=== PATIENT | female | born 1935 | race Two or more races ===

== ENCOUNTER 2017-10-10 11:45 | Emergency (ER) | payer MEDICARE, BC ==
[2017-10-10] MEDS ORDERED: SODIUM CHLORIDE 0.9% 1,000 ML IV STA (12:13)
[2017-10-10] MEDS ORDERED: SODIUM CHLORIDE 0.9% 500 ML IV STA (12:13)
[2017-10-10] MEDS ORDERED: PANTOPRAZOLE 40 MG/10 ML VIAL IVP STA (12:13)
[2017-10-10] MEDS ORDERED: ONDANSETRON 4 MG/2 ML VIAL IVP STA (12:13)
--- NOTE | 2017-10-10 12:19 | ED ---
General Adult HPI - General Chief complaint: GI Bleed Source: patient, RN notes reviewed, old records reviewed Mode of arrival: ambulatory Limitations: no limitations - History of Present Illness Initial comments: This is an 82-year-old female to the ER today for evaluation. This patient thank for evaluation of possible blood in her stool. Patient has had dark stools. She is unsure if it is due to what she is eating Morgan's having bleeding. Patient denies pain no abdominal pain. Patient has had bleeding in her stool before but that was accompanied with pain. She does have history of colonoscopy, no blood thinners. No nausea or vomiting - Related Data Home Medications Medication Instructions Recorded Confirmed Atorvastatin [Lipitor] 20 mg PO HS 02/02/14 10/10/17 Cholecalciferol [Vitamin D3] 2,000 unit PO DAILY 02/02/14 10/10/17 Docusate Sodium [Stool Softener] 100 mg PO BID 02/02/14 10/10/17 Ferrous Sulfate [Feosol] 325 mg PO BID 02/02/14 10/10/17 Lisinopril [Zestril] 5 mg PO DAILY 02/02/14 10/10/17 Omeprazole 40 mg PO AC-BRKFST 02/02/14 10/10/17 metFORMIN HCL [Glucophage] 500 mg PO QAM 02/02/14 10/10/17 Calcium Carbonate [Calcium] 600 mg PO BID 07/21/15 10/10/17 sitaGLIPtin [Januvia] 50 mg PO DAILY 11/18/15 10/10/17 Magnesium Oxide [Mag-Ox] 250 mg PO BID 10/10/17 10/10/17 metFORMIN HCL [Glucophage] 1,000 mg PO HS 10/10/17 10/10/17 Allergies Allergy/AdvReac Type Severity Reaction Status Date / Time codeine AdvReac Nausea & Verified 10/10/17 12:18 Vomiting Review of Systems ROS Statement: Those systems with pertinent positive or pertinent negative responses have been documented in the HPI. ROS Other: All systems not noted in ROS Statement are negative. Past Medical History Past Medical History: Diabetes Mellitus, GERD/Reflux, GI Bleed, Hyperlipidemia, Hypertension, Osteoarthritis (OA), Pneumonia Additional Past Medical History / Comment(s): Bowel Obstruction, Scoliosis, ANEMIA,CONSTIPATION History of Any Multi-Drug Resistant Organisms: None Reported Past Surgical History: Appendectomy, Bowel Resection, Section, Cholecystectomy, Hysterectomy, Tonsillectomy Additional Past Surgical History / Comment(s): BOWEL RESECTION D/T OBSTRUCTION, EGD/COLONOSCOPY, ANA CATARACATS, Past Anesthesia/Blood Transfusion Reactions: Postoperative Nausea & Vomiting ( PONV) Past Psychological History: No Psychological Hx Reported Smoking Status: Never smoker Past Alcohol Use History: None Reported Past Drug Use History: None Reported - Past Family History Father Family Medical History: Diabetes Mellitus Mother Family Medical History: Diabetes Mellitus General Exam Limitations: no limitations General appearance: alert, in no apparent distress Head exam: Present: atraumatic, normocephalic, normal inspection Eye exam: Present: normal appearance, PERRL, EOMI. Absent: scleral icterus, conjunctival injection, periorbital swelling ENT exam: Present: normal exam, mucous membranes moist Neck exam: Present: normal inspection. Absent: tenderness, meningismus, lymphadenopathy Respiratory exam: Present: normal lung sounds bilaterally. Absent: respiratory distress, wheezes, rales, rhonchi, stridor Cardiovascular Exam: Present: regular rate, normal rhythm, normal heart sounds. Absent: systolic murmur, diastolic murmur, rubs, gallop, clicks GI/Abdominal exam: Present: soft, normal bowel sounds. Absent: distended, tenderness, guarding, rebound, rigid Extremities exam: Present: normal inspection, full ROM, normal capillary refill. Absent: tenderness, pedal edema, joint swelling, calf tenderness Back exam: Present: normal inspection Neurological exam: Present: alert, oriented X3, CN II-XII intact Psychiatric exam: Present: normal affect, normal mood Skin exam: Present: warm, dry, intact, normal color. Absent: rash Course Vital Signs 10/10/17 10/10/17 11:59 13:02 Temperature 98.4 F Pulse Rate 72 68 Respiratory 16 18 Rate Blood Pressure 144/65 118/56 O2 Sat by Pulse 100 100 Oximetry - Reevaluation(s) Reevaluation #1: 10/10/17 13:09 History of colonoscopy regarding bleeding, ulcer Reevaluation #2: 10/10/17 14:17 Patient's awake alert not feeling nauseous dizzy weak or lightheaded Medical Decision Making - Medical Decision Making 82 female the ER with dark stools, patient informed of hemoglobin being normal, patient states she is scheduled to see GI would like to keep that appointment, she does not want to stay in the hospital, patient states she feels fine has not had any blood or any bowel movements while here in the ER - Lab Data Result diagrams: 10/10/17 12:20 10/10/17 12:20 Lab Results 10/10/17 10/10/17 10/10/17 Range/Units 12:20 12:20 12:20 WBC 5.9 (3.8-10.6) k/uL RBC 4.24 (3.80-5.40) m/uL Hgb 12.6 (11.4-16.0) gm/dL Hct 39.6 (34.0-46.0) % MCV 93.3 (80.0-100.0) fL MCH 29.8 (25.0-35.0) pg MCHC 32.0 (31.0-37.0) g/dL RDW 14.1 (11.5-15.5) % Plt Count 224 (150-450) k/uL Neutrophils % 78 % Lymphocytes % 14 % Monocytes % 6 % Eosinophils % 1 % Basophils % 0 % Neutrophils # 4.6 (1.3-7.7) k/uL Lymphocytes # 0.8 L (1.0-4.8) k/uL Monocytes # 0.3 (0-1.0) k/uL Eosinophils # 0.0 (0-0.7) k/uL Basophils # 0.0 (0-0.2) k/uL PT (9.0-12.0) sec INR (<1.2) APTT (22.0-30.0) sec Sodium 137 (137-145) mmol/L Potassium 4.2 (3.5-5.1) mmol/L Chloride 101 (98-107) mmol/L Carbon Dioxide 26 (22-30) mmol/L Anion Gap 10 mmol/L BUN 20 H (7-17) mg/dL Creatinine 0.60 (0.52-1.04) mg/dL Est GFR (MDRD) Af Amer >60 (>60 ml/min/1.73 sqM) Est GFR (MDRD) Non-Af >60 (>60 ml/min/1.73 sqM) Glucose 191 H (74-99) mg/dL Calcium 10.1 (8.4-10.2) mg/dL Magnesium 1.6 (1.6-2.3) mg/dL Total Bilirubin 0.4 (0.2-1.3) mg/dL AST 21 (14-36) U/L ALT 42 (9-52) U/L Alkaline Phosphatase 151 H (38-126) U/L Total Creatine Kinase 92 (30-135) U/L CK-MB (CK-2) 2.2 (0.0-2.4) ng/mL CK-MB (CK-2) Rel Index 2.4 Troponin I <0.012 (0.000-0.034) ng/mL Total Protein 6.9 (6.3-8.2) g/dL Albumin 4.1 (3.5-5.0) g/dL Lipase 167 (23-300) U/L Blood Type Blood Type Recheck Antibody Screen Spec Expiration Date 10/10/17 10/10/17 Range/Units 12:20 12:20 WBC (3.8-10.6) k/uL RBC (3.80-5.40) m/uL Hgb (11.4-16.0) gm/dL Hct (34.0-46.0) % MCV (80.0-100.0) fL MCH (25.0-35.0) pg MCHC (31.0-37.0) g/dL RDW (11.5-15.5) % Plt Count (150-450) k/uL Neutrophils % % Lymphocytes % % Monocytes % % Eosinophils % % Basophils % % Neutrophils # (1.3-7.7) k/uL Lymphocytes # (1.0-4.8) k/uL Monocytes # (0-1.0) k/uL Eosinophils # (0-0.7) k/uL Basophils # (0-0.2) k/uL PT 9.4 (9.0-12.0) sec INR 0.9 (<1.2) APTT 24.9 (22.0-30.0) sec Sodium (137-145) mmol/L Potassium (3.5-5.1) mmol/L Chloride (98-107) mmol/L Carbon Dioxide (22-30) mmol/L Anion Gap mmol/L BUN (7-17) mg/dL Creatinine (0.52-1.04) mg/dL Est GFR (MDRD) Af Amer (>60 ml/min/1.73 sqM) Est GFR (MDRD) Non-Af (>60 ml/min/1.73 sqM) Glucose (74-99) mg/dL Calcium (8.4-10.2) mg/dL Magnesium (1.6-2.3) mg/dL Total Bilirubin (0.2-1.3) mg/dL AST (14-36) U/L ALT (9-52) U/L Alkaline Phosphatase (38-126) U/L Total Creatine Kinase (30-135) U/L CK-MB (CK-2) (0.0-2.4) ng/mL CK-MB (CK-2) Rel Index Troponin I (0.000-0.034) ng/mL Total Protein (6.3-8.2) g/dL Albumin (3.5-5.0) g/dL Lipase (23-300) U/L Blood Type O Positive Blood Type Recheck No Antibody Screen NEGATIVE Spec Expiration Date 10/13/2017 - 1420 - Radiology Data Radiology results: report reviewed (X-ray barium swallow), image reviewed Disposition Clinical Impression: Gastrointestinal hemorrhage Disposition: HOME SELF-CARE Condition: Good Instructions: Gastrointestinal Bleeding (ED) Referrals: Jaison Barros MD [Primary Care Provider] - 1-2 days
[2017-10-10 12:42] LABS: Basophils % (A) 0 %; Eosinophils % (A) 1 %; HCT 39.6 % (34.0-46.0); HGB 12.6 gm/dL (11.4-16.0); Lymphocytes # (A) 0.8 k/uL (1.0-4.8); Lymphocytes % (A) 14 %; MCH 29.8 pg (25.0-35.0); MCV 93.3 fL (80.0-100.0); Mean Platelet Volume 7.9; Monocytes # (A) 0.3 k/uL (0-1.0); Monocytes % (A) 6 %; Neutrophils # (A) 4.6 k/uL (1.3-7.7); Neutrophils % (A) 78 %; Platelet Count 224 k/uL (150-450); RBC 4.24 m/uL (3.80-5.40); RDW 14.1 % (11.5-15.5); WBC 5.9 k/uL (3.8-10.6)
[2017-10-10 12:48] LABS: INR 0.9 (<1.2); Partial Thromboplastin Time 24.9 sec (22.0-30.0); Prothrombin Time 9.4 sec (9.0-12.0)
[2017-10-10 12:52] LABS: ALT 42 U/L (9-52); AST 21 U/L (14-36); Albumin 4.1 g/dL (3.5-5.0); Alkaline Phosphatase 151 U/L (38-126); Anion Gap 10 mmol/L; Blood Urea Nitrogen 20 mg/dL (7-17); Calcium 10.1 mg/dL (8.4-10.2); Carbon Dioxide 26 mmol/L (22-30); Chloride 101 mmol/L (98-107); Glucose 191 mg/dL (74-99); Lipase 167 U/L (23-300); Magnesium 1.6 mg/dL (1.6-2.3); Potassium 4.2 mmol/L (3.5-5.1); Sodium 137 mmol/L (137-145); Total Bilirubin 0.4 mg/dL (0.2-1.3); Total Protein 6.9 g/dL (6.3-8.2)
[2017-10-10 13:01] LABS: Creatine Kinase 92 U/L (30-135)
[2017-10-10 13:14] LABS: Creatine Kinase MB 2.2 ng/mL (0.0-2.4); Troponin I <0.012 ng/mL (0.000-0.034)
[2017-10-10 13:57] VITALS: BP 118/56; PULSE 68
[2017-10-10 14:52] VITALS: RESP 16; TEMP 98.6
== END 2017-10-10 14:52 | disposition home or self-care (01) ==
LOC: EC 11:45
DX: K92.2 Gastrointestinal hemorrhage, unspecified (principal); E11.9 Type 2 diabetes mellitus without complications; K21.9 Gastro-esophageal reflux disease without esophagitis; E78.5 Hyperlipidemia, unspecified; I10 Essential (primary) hypertension; Z90.49 Acquired absence of other specified parts of digestive tract; Z90.710 Acquired absence of both cervix and uterus; Z98.890 Other specified postprocedural states; Z79.84 Long term (current) use of oral hypoglycemic drugs; Z79.899 Other long term (current) drug therapy; Z88.5 Allergy status to narcotic agent
CPT/HCPCS: 36415; 86900; 86901; 80053; 82550; 82553; 83690; 83735; 84484; 85025; 85610; 85730; 86850; 99285; 96374; 96375; 96361 ×2; J2405; C9113

== ENCOUNTER → 2017-11-13 | Outpatient (CLI) | payer MEDICARE, BC ==
--- NOTE | 2017-11-13 11:55 | FL ---
EXAMINATION TYPE: FL barium swallow w video DATE OF EXAM: 11/13/2017 MODIFIED SWALLOW / DEGLUTITION STUDY CLINICAL HISTORY: Dysphagia. TECHNIQUE: Deglutition study is performed utilizing thin liquid barium, honey and nectar thick liqui d barium, barium thick applesauce, and barium coated cracker. 1 minute and 6 seconds of fluoroscopy t jeane was utilized with 0 images saved. COMPARISON: None. FINDINGS: The oral and pharyngeal phases show satisfactory initiation and propagation with all modali ties tested. Normal mastication is seen with solid modalities tested. There is no evidence of aspir ation with any modality tested. Trace penetration was seen with the thin consistency only. No signif icant pharyngeal residue was appreciated. IMPRESSION: Trace penetration with the thin consistency only otherwise unremarkable exam. Please ref er to speech therapist notes for further details if necessary.
== END | disposition home or self-care (01) ==
LOC: RADFLMAIN 11:15
DX: R13.12 Dysphagia, oropharyngeal phase (principal)
CPT/HCPCS: 74230

== ENCOUNTER → 2018-02-27 | Outpatient (CLI) | payer MEDICARE, BC ==
--- NOTE | 2018-02-28 11:24 | US ---
EXAMINATION TYPE: US venous doppler duplex LE RT DATE OF EXAM: 02/27/2018 2:57 PM COMPARISON: NONE CLINICAL HISTORY: M79.661 pain in right lower limb. SIDE PERFORMED: Right TECHNIQUE: The lower extremity deep venous system is examined utilizing real time linear array sonog aston with graded compression, doppler sonography and color-flow sonography. VESSELS IMAGED: External Iliac Vein (EIV) Common Femoral Vein Deep Femoral Vein Greater Saphenous Vein * Femoral Vein Popliteal Vein Small Saphenous Vein * Proximal Calf Veins (* superficial vessels) Right Leg: Negative for DVT IMPRESSION: Right lower extremity venous ultrasound negative for deep venous thrombosis.
== END | disposition home or self-care (01) ==
LOC: RADUSWWP 14:24
PROVIDERS: ATTEND Family Medicine
DX: M79.661 Pain in right lower leg (principal)

== ENCOUNTER → 2020-09-13 | Outpatient (CLI) | payer MEDICARE, BC ==
--- NOTE | 2020-09-13 13:50 | US ---
EXAMINATION TYPE: US venous doppler duplex LE DATE OF EXAM: 09/13/2020 1:34 PM COMPARISON: NONE CLINICAL HISTORY: R22.41,R22.42 SWELLING OF LT AND RT LIMBS. SIDE PERFORMED: Bilateral TECHNIQUE: The lower extremity deep venous system is examined utilizing real time linear array sonog aston with graded compression, doppler sonography and color-flow sonography. VESSELS IMAGED: Common Femoral Vein Deep Femoral Vein Greater Saphenous Vein * Femoral Vein Popliteal Vein Small Saphenous Vein * Proximal Calf Veins (* superficial vessels) Right Leg: Negative for DVT Left Leg: Negative for DVT IMPRESSION: No evidence for DVT.
== END | disposition home or self-care (01) ==
LOC: RADUSWWP 12:56
PROVIDERS: ATTEND Family Medicine
DX: R22.43 Localized swelling, mass and lump, lower limb, bilateral (principal); Z88.2 Allergy status to sulfonamides; Z88.5 Allergy status to narcotic agent
CPT/HCPCS: 93970

== ENCOUNTER 2022-10-04 17:30 | Emergency (ER) | payer MEDICARE, BC ==
[2022-10-04 19:39] VITALS: RESP 18; TEMP 98
[2022-10-04] MEDS ORDERED: MECLIZINE 12.5 MG TAB PO STA (19:40)
[2022-10-04 19:42] LABS: Basophils % (A) 0 %; Eosinophils # (A) 0.1 k/uL (0-0.7); Eosinophils % (A) 1 %; HCT 33.9 % (34.0-46.0); HGB 10.9 gm/dL (11.4-16.0); Lymphocytes # (A) 0.5 k/uL (1.0-4.8); Lymphocytes % (A) 8 %; MCHC 32.1 g/dL (31.0-37.0); MCV 96.5 fL (80.0-100.0); Mean Platelet Volume 7.6; Monocytes # (A) 0.3 k/uL (0-1.0); Monocytes % (A) 4 %; Neutrophils # (A) 6.1 k/uL (1.3-7.7); Neutrophils % (A) 85 %; Platelet Count 324 k/uL (150-450); RBC 3.51 m/uL (3.80-5.40); RDW 13.5 % (11.5-15.5); WBC 7.1 k/uL (3.8-10.6)
[2022-10-04 20:05] LABS: Albumin 3.7 g/dL (3.5-5.0); Calcium 8.9 mg/dL (8.4-10.2); Potassium 3.9 mmol/L (3.5-5.1); Total Bilirubin 0.4 mg/dL (0.2-1.3); Total Protein 6.6 g/dL (6.3-8.2)
--- NOTE | 2022-10-04 20:56 | CT ---
EXAMINATION TYPE: CT angio head neck CT DLP: 1472.7 mGycm, Automated exposure control for dose reduction was used. DATE OF EXAM: 10/04/2022 8:43 PM COMPARISON: None. CLINICAL INDICATION:Female, 86 years old with history of acute vertigo; PHH, DIZZINESS. ACUTE VERTIGO . TECHNIQUE: Axially acquired helical CT angiogram of the head and neck was obtained with contrast. Axi al images are supplemented with 3D reconstructions which [facility] NASCET criteria used. Contrast used:65 mL of Isovue 370 without and with IV Contrast, Oral contrast used: None. FINDINGS: CTA HEAD: No evidence of acute intracranial hemorrhage, mass effect, or midline shift. The ventricles, sulci, a nd cisterns are unremarkable. The visualized portions of the internal carotid arteries, middle cerebral arteries, anterior cerebral arteries, and posterior cerebral arteries are patent. origin of the left posterior cerebral ar sumanth. Hypoplastic right posterior communicating artery. The basilar and vertebral arteries are patent . Bilaterally aphakia. Scattered white matter changes within the cerebrum. Atherosclerosis of the art erial vasculature CTA NECK: Right Carotid System: The common carotid artery and external carotid artery are patent. The carotid bifurcation demonstrate s calcified plaque with at least 25% stenosis. The remaining portions of the internal carotid artery demonstrate normal size without significant narrowing. Left Carotid System: The common carotid artery and external carotid artery are patent. The carotid bifurcation demonstrate s calcified plaque with at least 25% stenosis. The remaining portions of the internal carotid artery demonstrate normal size without significant narrowing. Vertebral arteries are patent without evidence hemodynamically significant stenosis. There is a domin ant right vertebral artery. For vessel aortic arch. Calcified plaque with at least 25% stenosis of the left subclavian artery at its origin. No evidence of hemodynamically significant stenosis. IMPRESSION: 1. No evidence of dissection of the cervical internal carotid arteries or vertebral arteries or any e vidence of significant stenosis at the carotid bifurcations. 2. No evidence of intracranial high-grade stenosis or intracranial aneurysm. 3. Mild calcified plaque at the origins of the internal carotid arteries and left subclavian artery w ith 25% stenosis. 4. Nonspecific white matter changes.
[2022-10-04] MEDS ORDERED: INSULIN REGULAR 100 UNIT/ML VIAL (IV) SQ STA (21:22)
[2022-10-04] MEDS ORDERED: SODIUM CHLORIDE 0.9% 1,000 ML IV ONE (21:22)
[2022-10-04 21:49] LABS: Glucose,Whole Blood 131 mg/dL (70-110)
[2022-10-04 21:54] LABS: Glucose,Whole Blood 329 mg/dL (70-110)
[2022-10-04] MEDS ORDERED: INSULIN REGULAR 100 UNIT/ML VIAL (IM/SQ) SQ ONE (21:54)
--- NOTE | 2022-10-04 22:25 | ED ---
Dizziness HPI - General Chief Complaint: Dizziness Stated Complaint: dizziness, weakness Time Seen by Provider: 10/04/22 19:23 Source: patient Mode of arrival: wheelchair - History of Present Illness Initial Comments: This patient is an 87-year-old woman who states that she has not been feeling right going back to 3 days. She is feeling off balance and lightheaded like she will fall. Things are definitely worse if she attempts to get up and walk. She feels much better if she is remaining still sitting down. She is not having injury prior to onset. She has not noted chest pain, dyspnea, diaphoresis. No fever or chills. Patient denies change in bowel movements, no bloody or tarry stools. MD Complaint: dizziness, lightheadedness -: days(s) Timing: gradual onset Description: lightheadedness, off-balance, difficulty walking History of Same: Yes History of Trauma: No Severity: moderate Improves With: remaining still Worsens With: other (Walking) Associated Symptoms: weakness - Related Data Home Medications Medication Instructions Recorded Confirmed Atorvastatin [Lipitor] 20 mg PO HS 02/02/14 10/04/22 Ferrous Sulfate [Feosol] 325 mg PO BID 02/02/14 10/04/22 Omeprazole 40 mg PO DAILY 02/02/14 10/04/22 lisinopriL [Zestril] 5 mg PO DAILY 02/02/14 10/04/22 Magnesium Oxide [Mag-Ox] 250 mg PO DAILY 10/10/17 10/04/22 Carboxymethylcellulose Sodium 1 drop BOTH EYES TID PRN 10/04/22 10/04/22 [Refresh Tears] Cholecalciferol [Vitamin D3 (25 50 mcg PO DAILY 10/04/22 10/04/22 Mcg = 1000 Iu)] Furosemide [Lasix] 40 mg PO DAILY 10/04/22 10/04/22 Glimepiride [Amaryl] 4 mg PO DAILY 10/04/22 10/04/22 Insulin Degludec [Tresiba 5 - 6 units SQ HS 10/04/22 10/04/22 Flextouch U-100 Pen] Pioglitazone [Actos] 15 mg PO DAILY 10/04/22 10/04/22 metFORMIN HCL ER [Glucophage XR] 500 mg PO DAILY 10/04/22 10/04/22 sitaGLIPtin [Januvia] 100 mg PO DAILY 10/04/22 10/04/22 Allergies Allergy/AdvReac Type Severity Reaction Status Date / Time codeine AdvReac Nausea & Verified 10/04/22 18:11 Vomiting Review of Systems ROS Statement: Those systems with pertinent positive or pertinent negative responses have been documented in the HPI. ROS Other: All systems not noted in ROS Statement are negative. Constitutional: Reports: weakness. Denies: fever, chills Eyes: Denies: vision change Respiratory: Denies: cough, dyspnea Cardiovascular: Denies: chest pain, palpitations Gastrointestinal: Denies: abdominal pain, vomiting, diarrhea, melena, hematochezia Genitourinary: Denies: dysuria, hematuria Skin: Denies: rash Neurological: Denies: headache, weakness, numbness, confusion Past Medical History Past Medical History: Diabetes Mellitus, GERD/Reflux, GI Bleed, Hyperlipidemia, Hypertension, Osteoarthritis (OA), Pneumonia Additional Past Medical History / Comment(s): Bowel Obstruction, Scoliosis, ANEMIA,CONSTIPATION History of Any Multi-Drug Resistant Organisms: None Reported Past Surgical History: Appendectomy, Bowel Resection, Section, Cholecystectomy, Hysterectomy, Tonsillectomy Additional Past Surgical History / Comment(s): BOWEL RESECTION D/T OBSTRUCTION, EGD/COLONOSCOPY, ANA CATARACATS, Past Anesthesia/Blood Transfusion Reactions: Postoperative Nausea & Vomiting ( PONV) Past Psychological History: No Psychological Hx Reported Past Alcohol Use History: None Reported Past Drug Use History: None Reported - Past Family History Father Family Medical History: Diabetes Mellitus Mother Family Medical History: Diabetes Mellitus General Exam General appearance: alert, in no apparent distress Head exam: Present: atraumatic, normocephalic Eye exam: Present: normal appearance, PERRL, EOMI, scleral icterus, conjunctival injection ENT exam: Present: mucous membranes dry Neck exam: Present: normal inspection, full ROM. Absent: tenderness, meningismus Respiratory exam: Present: normal lung sounds bilaterally. Absent: respiratory distress, wheezes, rales, rhonchi, stridor Cardiovascular Exam: Present: regular rate, normal rhythm, normal heart sounds. Absent: systolic murmur, diastolic murmur, rubs, gallop GI/Abdominal exam: Present: soft. Absent: distended, tenderness, guarding, rebo und, rigid, mass Extremities exam: Present: normal inspection, normal capillary refill. Absent: pedal edema, calf tenderness Back exam: Present: normal inspection. Absent: CVA tenderness (R), CVA tenderness (L) Neurological exam: Present: alert, oriented X3, CN II-XII intact. Absent: motor sensory deficit Skin exam: Present: warm, dry, intact, normal color. Absent: rash Course Vital Signs 10/04/22 10/04/22 10/04/22 18:06 19:37 21:08 Temperature 98.2 F 98.0 F Pulse Rate 93 81 84 Respiratory 16 18 Rate Blood Pressure 106/60 121/59 110/54 O2 Sat by Pulse 98 98 100 Oximetry 10/04/22 23:03 Temperature Pulse Rate 81 Respiratory 18 Rate Blood Pressure 109/51 O2 Sat by Pulse 92 L Oximetry EKG Findings - EKG Results: EKG: interpreted by EVELYN LADD, sinus rhythm (Rate 88 bpm), normal axis, normal QRS, normal ST/T, no acute changes - MN, Pacemaker, Normal: Normal tracing: normal tracing Medical Decision Making - Medical Decision Making This patient is an 87-year-old woman presenting with altered balance unsteady feeling. It is particularly worse if she is up and moving, better if she is just remaining still and sitting. On exam she does appear to have dry mucous membranes. Lab studies reveal patient has moderate hyperglycemia. The patient does feel better following fluid bolus. She is feeling better like she would like to go home. We discussed maintaining the diabetic diet. He does not want stay for further education and treatment. Patient will return if symptoms worsen. Was pt. sent in by a medical professional or institution? @ -no Did you speak to anyone other than the patient for history? @ -[Daughter Did you review nursing and triage notes? @ -[agree Were old charts reviewed? @ -[No Differential Diagnosis? @ -[Differential Dizziness: Benign paroxysmal positional Vertigo, Menieres disease, otitis media, acoustic neuroma, vertebrobasilar insufficiency, cerebellar stroke, encephalitis, hypovolemic, arrhythmia, coronary artery syndrome, anemia, this is not meant to be an all-inclusive list EKG interpreted by me (3pts min.)? @ -[See chart X-rays interpreted by me (1pt min.)? @ -[none] CT interpreted by me (1pt min.)? @ -[none] U/S interpreted by me (1pt. min.)? @ -[none] What testing was considered but not performed? (CT, X-rays, U/S, labs)? Why? @ [No What meds were considered but not given? Why? @ -[none] Did you discuss the management of the patient with other professionals? @ -No Did you reconcile home meds? @ -[none] Was smoking cessation discussed for >3mins.? @ -[none] Was critical care preformed (if so, how long)? @ -[none] Were there social determinants of health that impacted care today? How? ( Homelessness, low income, unemployed, alcoholism, drug addiction, transportation, low edu. Level, literacy, decrease access to med. care, [facility], rehab)? @ -[No Was there de-escalation of care discussed even if they declined? (Discuss DNR or withdrawal of care, Hospice)? @ -[No What co-morbidities impacted this encounter? (DM, HTN, Smoking, COPD, CAD, Cancer, CVA, Hep., AIDS, mental health diagnosis, sleep apnea, morbid obesity)? @ -[DM, Was patient admitted / discharged? @ -[Discharged Undiagnosed new problem with uncertain prognosis? @ -[none] Drug Therapy requiring intensive monitoring for toxicity (Heparin, Nitro, Insulin, Cardizem)? @ -[none] Were any procedures done? @ -[none] Diagnosis/symptom? @ -[1. Hyperglycemia 2. Dehydration, acute Acute, or Chronic, or Acute on Chronic? @ -[1.Acute on chronic Uncomplicated (without systemic symptoms) or Complicated (systemic symptoms)? @ -1. Complicated Side effects of treatment? @ -[none] Exacerbation, Progression, or Severe Exacerbation] @ -[no] Poses a threat to life or bodily function? @ -[no] - Lab Data Result diagrams: 10/04/22 19:25 10/04/22 19:25 Lab Results 10/04/22 10/04/22 10/04/22 Range/Units 18:13 19:25 19:25 WBC 7.1 (3.8-10.6) k/uL RBC 3.51 L (3.80-5.40) m/uL Hgb 10.9 L (11.4-16.0) gm/dL Hct 33.9 L (34.0-46.0) % MCV 96.5 (80.0-100.0) fL MCH 31.0 (25.0-35.0) pg MCHC 32.1 (31.0-37.0) g/dL RDW 13.5 (11.5-15.5) % Plt Count 324 (150-450) k/uL MPV 7.6 Neutrophils % 85 % Lymphocytes % 8 % Monocytes % 4 % Eosinophils % 1 % Basophils % 0 % Neutrophils # 6.1 (1.3-7.7) k/uL Lymphocytes # 0.5 L (1.0-4.8) k/uL Monocytes # 0.3 (0-1.0) k/uL Eosinophils # 0.1 (0-0.7) k/uL Basophils # 0.0 (0-0.2) k/uL Sodium 136 L (137-145) mmol/L Potassium 3.9 (3.5-5.1) mmol/L Chloride 102 (98-107) mmol/L Carbon Dioxide 26 (22-30) mmol/L Anion Gap 8 mmol/L BUN 38 H (7-17) mg/dL Creatinine 0.82 (0.52-1.04) mg/dL Est GFR (CKD-EPI)AfAm 75 (>60 ml/min/1.73 sqM) Est GFR (CKD-EPI)NonAf 65 (>60 ml/min/1.73 sqM) Glucose 425 H (74-99) mg/dL POC Glucose (mg/dL) (70-110) mg/dL POC Glu Data Processing Auditor ID Calcium 8.9 (8.4-10.2) mg/dL Total Bilirubin 0.4 (0.2-1.3) mg/dL AST 55 H (14-36) U/L ALT 77 H (4-34) U/L Alkaline Phosphatase 235 H (38-126) U/L Total Protein 6.6 (6.3-8.2) g/dL Albumin 3.7 (3.5-5.0) g/dL Influenza Type A (PCR) Not Detected (Not Detectd) Influenza Type B (PCR) Not Detected (Not Detectd) RSV (PCR) Not Detected (Not Detectd) SARS-CoV-2 (PCR) Not Detected (Not Detectd) 0110/04/22 10/04/22 Range/Units 21:48 21:53 22:39 WBC (3.8-10.6) k/uL RBC (3.80-5.40) m/uL Hgb (11.4-16.0) gm/dL Hct (34.0-46.0) % MCV (80.0-100.0) fL MCH (25.0-35.0) pg MCHC (31.0-37.0) g/dL RDW (11.5-15.5) % Plt Count (150-450) k/uL MPV Neutrophils % % Lymphocytes % % Monocytes % % Eosinophils % % Basophils % % Neutrophils # (1.3-7.7) k/uL Lymphocytes # (1.0-4.8) k/uL Monocytes # (0-1.0) k/uL Eosinophils # (0-0.7) k/uL Basophils # (0-0.2) k/uL Sodium (137-145) mmol/L Potassium (3.5-5.1) mmol/L Chloride (98-107) mmol/L Carbon Dioxide (22-30) mmol/L Anion Gap mmol/L BUN (7-17) mg/dL Creatinine (0.52-1.04) mg/dL Est GFR (CKD-EPI)AfAm (>60 ml/min/1.73 sqM) Est GFR (CKD-EPI)NonAf (>60 ml/min/1.73 sqM) Glucose (74-99) mg/dL POC Glucose (mg/dL) 131 H 329 H 293 H (70-110) mg/dL POC Glu Data Processing Auditor MALIKA Atkinson, Cecilia Atkinson, Cecilia Rodriguez, Kaci Calcium (8.4-10.2) mg/dL Total Bilirubin (0.2-1.3) mg/dL AST (14-36) U/L ALT (4-34) U/L Alkaline Phosphatase (38-126) U/L Total Protein (6.3-8.2) g/dL Albumin (3.5-5.0) g/dL Influenza Type A (PCR) (Not Detectd) Influenza Type B (PCR) (Not Detectd) RSV (PCR) (Not Detectd) SARS-CoV-2 (PCR) (Not Detectd) Disposition Clinical Impression: Dizziness, Hyperglycemia Disposition: HOME SELF-CARE Condition: Good Instructions (If sedation given, give patient instructions): Dizziness (ED), Diabetic Hyperglycemia (ED) Is patient prescribed a controlled substance at d/c from ED?: No Referrals: Jaison Barros MD [Primary Care Provider] - 1-2 days Larry Novak DO [Doctor of Osteopathic Medicine] - 1-2 days
[2022-10-04 22:40] LABS: Glucose,Whole Blood 293 mg/dL (70-110)
[2022-10-04 23:05] VITALS: BP 109/51; PULSE 81
== END 2022-10-04 23:06 | disposition home or self-care (01) ==
LOC: EC 17:30
DX: R42 Dizziness and giddiness (principal); E11.65 Type 2 diabetes mellitus with hyperglycemia; K21.9 Gastro-esophageal reflux disease without esophagitis; E78.5 Hyperlipidemia, unspecified; I10 Essential (primary) hypertension; M19.90 Unspecified osteoarthritis, unspecified site; Z20.822 Contact with and (suspected) exposure to COVID-19; Z79.84 Long term (current) use of oral hypoglycemic drugs; Z79.4 Long term (current) use of insulin; Z79.899 Other long term (current) drug therapy; Z79.1 Long term (current) use of non-steroidal anti-inflammatories (NSAID); Z88.5 Allergy status to narcotic agent
CPT/HCPCS: 36415; 93005; 80053; 85025; 87636; 70496; 70498; 99284; 96360; Q9967

== ENCOUNTER 2022-12-09 12:48 | Emergency (ER) | payer MEDICARE, BC ==
[2022-12-09 13:06] VITALS: BP 105/60; PULSE 60; RESP 20; TEMP 98
--- NOTE | 2022-12-09 13:29 | ED ---
General Adult HPI - General Chief complaint: Extremity Injury, Lower Stated complaint: L Leg/Hip Pain Time Seen by Provider: 12/09/22 13:11 Source: patient, family, RN notes reviewed, old records reviewed Mode of arrival: ambulatory Limitations: language barrier - History of Present Illness Initial comments: 87-year-old female presenting for left lower extremity pain. Pain has been progressive over several months. Initially was worse with waking up in the morning but has progressed to anytime the patient sits and rests this is followed by an episode of pain. She currently complains of both lower externally pain is but definitely worse on the left. She describes the pain is from her foot to her hip. No injury. No fall. No fever. She has an appointment to see rheumatology in 12 days. She is currently taking only Tylenol for pain. She has a codeine ALLERGY. Family is looking for symptomatic relief. - Related Data Home Medications Medication Instructions Recorded Confirmed Atorvastatin [Lipitor] 20 mg PO HS 02/02/14 10/04/22 Ferrous Sulfate [Feosol] 325 mg PO BID 02/02/14 10/04/22 Omeprazole 40 mg PO DAILY 02/02/14 10/04/22 lisinopriL [Zestril] 5 mg PO DAILY 02/02/14 10/04/22 Magnesium Oxide [Mag-Ox] 250 mg PO DAILY 10/10/17 10/04/22 Carboxymethylcellulose Sodium 1 drop BOTH EYES TID PRN 10/04/22 10/04/22 [Refresh Tears] Cholecalciferol [Vitamin D3 (25 50 mcg PO DAILY 10/04/22 10/04/22 Mcg = 1000 Iu)] Furosemide [Lasix] 40 mg PO DAILY 10/04/22 10/04/22 Glimepiride [Amaryl] 4 mg PO DAILY 10/04/22 10/04/22 Insulin Degludec [Tresiba 5 - 6 units SQ HS 10/04/22 10/04/22 Flextouch U-100 Pen] Pioglitazone [Actos] 15 mg PO DAILY 10/04/22 10/04/22 metFORMIN HCL ER [Glucophage XR] 500 mg PO DAILY 10/04/22 10/04/22 sitaGLIPtin [Januvia] 100 mg PO DAILY 10/04/22 10/04/22 Previous Rx's Medication Instructions Recorded traMADol HCL 50 mg PO BID #24 tab 12/09/22 Allergies Allergy/AdvReac Type Severity Reaction Status Date / Time codeine AdvReac Nausea & Verified 12/09/22 13:06 Vomiting Review of Systems ROS Statement: Those systems with pertinent positive or pertinent negative responses have been documented in the HPI. ROS Other: All systems not noted in ROS Statement are negative. Past Medical History Past Medical History: Diabetes Mellitus, GERD/Reflux, GI Bleed, Hyperlipidemia, Hypertension, Osteoarthritis (OA), Pneumonia Additional Past Medical History / Comment(s): Bowel Obstruction, Scoliosis, ANEMIA,CONSTIPATION History of Any Multi-Drug Resistant Organisms: None Reported Past Surgical History: Appendectomy, Bowel Resection, Section, Cholecystectomy, Hysterectomy, Tonsillectomy Additional Past Surgical History / Comment(s): BOWEL RESECTION D/T OBSTRUCTION, EGD/COLONOSCOPY, ANA CATARACATS, Past Anesthesia/Blood Transfusion Reactions: Postoperative Nausea & Vomiting (PONV) Past Psychological History: No Psychological Hx Reported Smoking Status: Never smoker Past Alcohol Use History: None Reported Past Drug Use History: None Reported - Past Family History Father Family Medical History: Diabetes Mellitus Mother Family Medical History: Diabetes Mellitus General Exam Limitations: language barrier General appearance: alert, in no apparent distress Head exam: Present: atraumatic, normocephalic Eye exam: Present: normal appearance, PERRL Neck exam: Present: normal inspection. Absent: tenderness, meningismus Respiratory exam: Present: normal lung sounds bilaterally. Absent: respiratory distress, wheezes Cardiovascular Exam: Present: regular rate, normal rhythm GI/Abdominal exam: Present: soft. Absent: distended, tenderness Extremities exam: Present: normal inspection, full ROM, other (Final range of motion of the left lower extremity, at the hip, knee, ankle. There is no sw elling, no erythema, 2+ femoral pulse, 2+ DP pulse. There is no signs of joint effusion, no erythema or skin changes, the entire extremity is warm.). Absent: tenderness Course Vital Signs 12/09/22 13:03 Temperature 98 F Pulse Rate 60 Respiratory 20 Rate Blood Pressure 105/60 O2 Sat by Pulse 97 Oximetry Medical Decision Making - Medical Decision Making Was pt. sent in by a medical professional or institution (, PA, STONE GRADER, urgent care, hospital, or prison...) When possible be specific @ -No Did you speak to anyone other than the patient for history (EMS, parent, family, police, friend...)? What history was obtained from this source @ -Additional history obtained from the patient's son who she lives with Did you review nursing and triage notes (agree or disagree)? Why? @ -I reviewed and agree with nursing and triage notes Were old charts reviewed (outside hosp., previous admission, EMS record, old EKG, old radiological studies, urgent care reports/EKG's, prison records)? Report findings @ -No old charts were reviewed Differential Diagnosis (chest pain, altered mental status, abdominal pain women, abdominal pain men, vaginal bleeding, weakness, fever, dyspnea, syncope, headache, dizziness, GI bleed, back pain, seizure, CVA, palpatations, mental health, musculoskeletal)? @ -Differential Musculoskeletal Muscular strain, contusion, ligament sprain, fracture, arthritis, septic arthritis, bursitis, cellulitis, muscle spasm, nerve compression, DVT, arterial occlusion, herpes zoster, electrolyte abnormality, tumor.... This is not meant to be in all inclusive list EKG interpreted by me (3pts min.). @ -none X-rays interpreted by me (1pt min.). @ -None done CT interpreted by me (1pt min.). @ -None done U/S interpreted by me (1pt. min.). @ -None done What testing was considered but not performed or refused? (CT, X-rays, U/S, labs)? Why? @ -Considered x-rays to evaluate for arthritis but family did not feel this was necessary What meds were considered but not given or refused? Why? @ -Considered IM pain medication, felt to be short-lived Did you discuss the management of the patient with other professionals (professionals i.e. , PA, STONE GRADER, lab, RT, psych nurse, social science teacher, director furniture, teacher, public information officer, casey saw operator)? Give summary @ -No Was smoking cessation discussed for >3mins.? @ -No Was critical care preformed (if so, how long)? @ -No Were there social determinants of health that impacted care today? How? (Homelessness, low income, unemployed, alcoholism, drug addiction, tr ansportation, low edu. Level, literacy, decrease access to med. care, senior living, rehab)? @ -No Was there de-escalation of care discussed even if they declined (Discuss DNR or withdrawal of care, Hospice)? DNR status @ -No What co-morbidities impacted this encounter? (DM, HTN, Smoking, COPD, CAD, Cancer, CVA, ARF, Chemo, Hep., AIDS, mental health diagnosis, sleep apnea, morbid obesity)? @ -Diabetes Was patient admitted / discharged? Hospital course, mention meds given and route, prescriptions, significant lab abnormalities, going to OR and other pertinent info. @ -87-year-old female with chronic worsening lower extremity pain. There is no history of trauma. There is no external signs of infection. Range of motion is normal. Distal pulses are intact throughout the left lower extremity. Tylenol is no longer working for this patient would did discuss a trial of tramadol. Family and patient are agreeable with this plan. They have an appointment with rheumatology in less than 2 weeks. Return parameters discussed. Undiagnosed new problem with uncertain prognosis? @ -Bilateral lower extremity pain Drug Therapy requiring intensive monitoring for toxicity (Heparin, Nitro, Insulin, Cardizem)? @ -No Were any procedures done? @ -No Diagnosis/symptom? @ -Chronic lower extremity pain Acute, or Chronic, or Acute on Chronic? @ -Chronic Uncomplicated (without systemic symptoms) or Complicated (systemic symptoms)? @ -Uncomplicated Side effects of treatment? @ -No Exacerbation, Progression, or Severe Exacerbation? @ -No Poses a threat to life or bodily function? How? (Chest pain, [place], [place], pneumonia, PE, COPD, DKA, ARF, appy, cholecystitis, CVA, Diverticulitis, Homicidal, Suicidal, threat to staff... and all critical care pts) @ -No Disposition Clinical Impression: Chronic pain Disposition: HOME SELF-CARE Condition: Fair Instructions (If sedation given, give patient instructions): Chronic Pain (ED) Prescriptions: traMADol HCL 50 mg PO BID #24 tab Is patient prescribed a controlled substance at d/c from ED?: No Referrals: Jaison Barros MD [Primary Care Provider] - 1-2 days Time of Disposition: 13:26
== END 2022-12-09 13:45 | disposition home or self-care (01) ==
LOC: EC 12:48
DX: G89.29 Other chronic pain (principal); I10 Essential (primary) hypertension; E11.9 Type 2 diabetes mellitus without complications; E78.5 Hyperlipidemia, unspecified; K21.9 Gastro-esophageal reflux disease without esophagitis; M19.90 Unspecified osteoarthritis, unspecified site; Z79.4 Long term (current) use of insulin; Z79.84 Long term (current) use of oral hypoglycemic drugs; Z79.899 Other long term (current) drug therapy; Z88.8 Allergy status to other drugs, medicaments and biological substances
CPT/HCPCS: 99283

== ENCOUNTER 2022-12-17 19:40 | Emergency (ER) | payer MEDICARE, BC ==
[2022-12-17 19:55] VITALS: TEMP 98.3
[2022-12-17] MEDS ORDERED: KETOROLAC 15 MG/ML 1 ML VIAL IVP STA (20:13)
--- NOTE | 2022-12-17 20:23 | ED ---
Extremity Problem HPI - General Chief complaint: Extremity Problem,Nontraumatic Stated complaint: legs swelling Time Seen by Provider: 12/17/22 20:03 Source: patient, family Mode of arrival: wheelchair Limitations: language barrier - History of Present Illness Initial comments: Patient is a 87-year-old female who presents to the emergency department for evaluation of right lower extremity swelling. Patient has history of chronic bilateral leg pain which she has appointment with rheumatology for this . She was evaluated in the emergency department on 07/11 discharged with tramadol and Tylenol as she has been taking. Over the past 2 days patient daughter had noticed redness over the right lower leg which has been worsening. Patient increased pain in this extremity. She denies fever, chills, nausea, vomiting. Denies history of DVT and PE. She does not use blood thinners. She denies any recent falls or injury. No chest pain or shortness of breath. No fever, chills, nausea, vomiting. - Related Data Home Medications Medication Instructions Recorded Confirmed Atorvastatin [Lipitor] 20 mg PO HS 02/02/14 12/17/22 Ferrous Sulfate [Feosol] 325 mg PO BID 02/02/14 12/17/22 Omeprazole 40 mg PO DAILY 02/02/14 12/17/22 lisinopriL [Zestril] 5 mg PO DAILY 02/02/14 12/17/22 Magnesium Oxide [Mag-Ox] 250 mg PO DAILY 10/10/17 12/17/22 Carboxymethylcellulose Sodium 1 drop BOTH EYES TID PRN 10/04/22 12/17/22 [Refresh Tears] Cholecalciferol [Vitamin D3 (25 50 mcg PO DAILY 10/04/22 12/17/22 Mcg = 1000 Iu)] Furosemide [Lasix] 40 mg PO DAILY 10/04/22 12/17/22 Glimepiride [Amaryl] 4 mg PO DAILY 10/04/22 12/17/22 Insulin Degludec [Tresiba 15 units SQ DAILY 10/04/22 12/17/22 Flextouch U-100 Pen] Pioglitazone [Actos] 15 mg PO DAILY 10/04/22 12/17/22 metFORMIN HCL ER [Glucophage XR] 500 mg PO DAILY 10/04/22 12/17/22 sitaGLIPtin [Januvia] 100 mg PO DAILY 10/04/22 12/17/22 traMADol HCL 25 - 50 mg PO BID 12/17/22 12/17/22 Previous Rx's Medication Instructions Recorded Cephalexin [Keflex] 500 mg PO Q6HR #20 cap 12/17/22 Allergies Allergy/AdvReac Type Severity Reaction Status Date / Time codeine AdvReac Nausea & Verified 12/17/22 21:30 Vomiting Review of Systems ROS Statement: Those systems with pertinent positive or pertinent negative responses have been documented in the HPI. ROS Other: All systems not noted in ROS Statement are negative. Past Medical History Past Medical History: Diabetes Mellitus, GERD/Reflux, GI Bleed, Hyperlipidemia, Hypertension, Osteoarthritis (OA), Pneumonia Additional Past Medical History / Comment(s): Bowel Obstruction, Scoliosis, ANEMIA,CONSTIPATION History of Any Multi-Drug Resistant Organisms: None Reported Past Surgical History: Appendectomy, Bowel Resection, Section, Cholecystectomy, Hysterectomy, Tonsillectomy Additional Past Surgical History / Comment(s): BOWEL RESECTION D/T OBSTRUCTION, EGD/COLONOSCOPY, ANA CATARACATS, Past Anesthesia/Blood Transfusion Reactions: Postoperative Nausea & Vomiting (PONV) Past Psychological History: No Psychological Hx Reported Smoking Status: Never smoker Past Alcohol Use History: None Reported Past Drug Use History: None Reported - Past Family History Father Family Medical History: Diabetes Mellitus Mother Family Medical History: Diabetes Mellitus General Exam Limitations: language barrier General appearance: alert, in no apparent distress Head exam: Present: atraumatic, normocephalic, normal inspection Respiratory exam: Present: normal lung sounds bilaterally. Absent: respiratory distress, wheezes, rales, rhonchi, stridor Cardiovascular Exam: Present: regular rate, normal rhythm, normal heart sounds. Absent: systolic murmur, diastolic murmur, rubs, gallop, clicks Extremities exam: Present: other (Left lower extremity: Normal inspection, full range of motion. 2+ DP pulse. Right lower extremity: Abrasion to midshin will be repeated traveling down to ankle. Some warmth. Tender to palpation. No calf tenderness. 2+ DP pulse. Sensation intact. full ROM) Neurological exam: Present: alert, oriented X3, CN II-XII intact Psychiatric exam: Present: normal affect, normal mood Skin exam: Present: warm, dry, intact, normal color. Absent: rash Course Vital Signs 12/17/22 12/17/22 19:50 21:20 Temperature 98.3 F Pulse Rate 81 80 Respiratory 22 16 Rate Blood Pressure 120/67 137/66 O2 Sat by Pulse 99 100 Oximetry Medical Decision Making - Medical Decision Making Was pt. sent in by a medical professional or institution (DOUG Vasques, SERVICE PLUMBER, urgent care, hospital, or skilled nursing...) When possible be specific @ -[No] Did you speak to anyone other than the patient for history (EMS, parent, family, police, friend...)? What history was obtained from this source @ -[No] Did you review nursing and triage notes (agree or disagree)? Why? @ -[I reviewed and agree with nursing and triage notes] Were old charts reviewed (outside hosp., previous admission, EMS record, old EKG, old radiological studies, urgent care reports/EKG's, skilled nursing records)? Report findings @ -[No old charts were reviewed] Differential Diagnosis (chest pain, altered mental status, abdominal pain women, abdominal pain men, vaginal bleeding, weakness, fever, dyspnea, syncope, headache, dizziness, GI bleed, back pain, seizure, CVA, palpatations, mental health)? @ -DVT, cellulitis, abscess, abrasion EKG interpreted by me (3pts min.). @ -[As above] X-rays interpreted by me (1pt min.). @ -[None done] CT interpreted by me (1pt min.). @ -[None done] U/S interpreted by me (1pt. min.). @ -No. Ultrasound report is negative for DVT in the right lower extremity What testing was considered but not performed or refused? (CT, X-rays, U/S, labs)? Why? @ -[None] What meds were considered but not given or refused? Why? @ -[None] Did you discuss the management of the patient with other professionals (p rofessionals i.e. DOUG Vasques, SERVICE PLUMBER, lab, RT, psych nurse, nursing home social worker, chocolate refining roller, teacher, credit or loans officer, case fitter)? Give summary @ -[No] Was smoking cessation discussed for >3mins.? @ -[No] Was critical care preformed (if so, how long)? @ -[No] Were there social determinants of health that impacted care today? How? (Homelessness, low income, unemployed, alcoholism, drug addiction, tr ansportation, low edu. Level, literacy, decrease access to med. care, fdc, rehab)? @ -[No] Was there de-escalation of care discussed even if they declined (Discuss DNR or withdrawal of care, Hospice)? DNR status @ -[No] What co-morbidities impacted this encounter? (DM, HTN, Smoking, COPD, CAD, Cancer, CVA, ARF, Chemo, Hep., AIDS, mental health diagnosis, sleep apnea, morbid obesity)? @ -[None] Was patient admitted / discharged? Hospital course, mention meds given and route, prescriptions, significant lab abnormalities, going to OR and other pertinent info. @ -Patient presenting with redness and swelling of the right lower extremity. There is abrasion with surrounding cellulitis. No MRSA history. No systemic symptoms or signs. Ultrasound is negative for DVT. Patient will be discharged with antibiotics. Undiagnosed new problem with uncertain prognosis? @ -[No] Drug Therapy requiring intensive monitoring for toxicity (Heparin, Nitro, Insulin, Cardizem)? @ -[No] Were any procedures done? @ -[No] Diagnosis/symptom? @ -cellulitis Acute, or Chronic, or Acute on Chronic? @ -acute Uncomplicated (without systemic symptoms) or Complicated (systemic symptoms)? @ -uncomplicated Side effects of treatment? @ -[No] Exacerbation, Progression, or Severe Exacerbation? @ -[No] Poses a threat to life or bodily function? How? (Chest pain, [place], [place], pneumonia, PE, COPD, DKA, ARF, appy, cholecystitis, CVA, Diverticulitis, Homicidal, Suicidal, threat to staff... and all critical care pts) @ -[No] Dr. Baer is my attending - Lab Data Result diagrams: 12/17/22 20:27 12/17/22 20:27 Lab Results 12/17/22 12/17/22 Range/Units 20:27 20:27 WBC 5.2 (3.8-10.6) k/uL RBC 3.72 L (3.80-5.40) m/uL Hgb 11.6 (11.4-16.0) gm/dL Hct 35.9 (34.0-46.0) % MCV 96.4 (80.0-100.0) fL MCH 31.1 (25.0-35.0) pg MCHC 32.2 (31.0-37.0) g/dL RDW 14.1 (11.5-15.5) % Plt Count 206 (150-450) k/uL MPV 7.8 Neutrophils % 73 % Lymphocytes % 15 % Monocytes % 7 % Eosinophils % 2 % Basophils % 0 % Neutrophils # 3.8 (1.3-7.7) k/uL Lymphocytes # 0.8 L (1.0-4.8) k/uL Monocytes # 0.4 (0-1.0) k/uL Eosinophils # 0.1 (0-0.7) k/uL Basophils # 0.0 (0-0.2) k/uL Sodium 135 L (137-145) mmol/L Potassium 4.9 (3.5-5.1) mmol/L Chloride 100 (98-107) mmol/L Carbon Dioxide 25 (22-30) mmol/L Anion Gap 10 mmol/L BUN 42 H (7-17) mg/dL Creatinine 1.02 (0.52-1.04) mg/dL Est GFR (CKD-EPI)AfAm 57 (>60 ml/min/1.73 sqM) Est GFR (CKD-EPI)NonAf 50 (>60 ml/min/1.73 sqM) Glucose 139 H (74-99) mg/dL Calcium 9.5 (8.4-10.2) mg/dL Total Bilirubin 0.5 (0.2-1.3) mg/dL AST 62 H (14-36) U/L ALT 97 H (4-34) U/L Alkaline Phosphatase 194 H (38-126) U/L Total Protein 7.3 (6.3-8.2) g/dL Albumin 4.3 (3.5-5.0) g/dL Disposition Clinical Impression: Cellulitis Disposition: HOME SELF-CARE Condition: Good Instructions (If sedation given, give patient instructions): Cellulitis (ED) Additional Instructions: Take antibiotic as directed. Continue tramadol and Tylenol for pain. Follow up with rheumatology as planned. Follow-up with primary care provider in one to 2 days as your liver enzymes were elevated today. Return to emergency department if you experience new, concerning, or worsening symptoms. Prescriptions: Cephalexin [Keflex] 500 mg PO Q6HR #20 cap Is patient prescribed a controlled substance at d/c from ED?: No Referrals: Jaison Barros MD [Primary Care Provider] - 1-2 days
--- NOTE | 2022-12-17 20:49 | US ---
EXAMINATION TYPE: US venous doppler duplex LE RT DATE OF EXAM: 12/17/2022 8:40 PM COMPARISON: 08/24/20 CLINICAL HISTORY: pain redness. pain, redness, and swelling in right calf x 4 days. Not on blood thin ners SIDE PERFORMED: Right TECHNIQUE: The lower extremity deep venous system is examined utilizing real time linear array sonog aston with graded compression, doppler sonography and color-flow sonography. VESSELS IMAGED: Common Femoral Vein Deep Femoral Vein Greater Saphenous Vein * Femoral Vein Popliteal Vein Small Saphenous Vein * Proximal Calf Veins (* superficial vessels) Right Leg: Negative for DVT. Edema noted behind knee and in calf IMPRESSION: No evidence of deep vein thrombosis in the right leg.
[2022-12-17 20:54] LABS: Basophils % (A) 0 %; Eosinophils # (A) 0.1 k/uL (0-0.7); Eosinophils % (A) 2 %; HCT 35.9 % (34.0-46.0); HGB 11.6 gm/dL (11.4-16.0); Lymphocytes # (A) 0.8 k/uL (1.0-4.8); Lymphocytes % (A) 15 %; MCH 31.1 pg (25.0-35.0); MCHC 32.2 g/dL (31.0-37.0); MCV 96.4 fL (80.0-100.0); Mean Platelet Volume 7.8; Monocytes # (A) 0.4 k/uL (0-1.0); Monocytes % (A) 7 %; Neutrophils # (A) 3.8 k/uL (1.3-7.7); Neutrophils % (A) 73 %; Platelet Count 206 k/uL (150-450); RBC 3.72 m/uL (3.80-5.40); RDW 14.1 % (11.5-15.5); WBC 5.2 k/uL (3.8-10.6)
[2022-12-17] MEDS ORDERED: cefTRIAXone IN SWFI 1,000 MG/10 ML SYRINGE IVP STA (21:01)
[2022-12-17 21:02] LABS: Albumin 4.3 g/dL (3.5-5.0); Calcium 9.5 mg/dL (8.4-10.2); Total Bilirubin 0.5 mg/dL (0.2-1.3); Total Protein 7.3 g/dL (6.3-8.2)
[2022-12-17 21:04] LABS: Potassium 4.9 mmol/L (3.5-5.1)
[2022-12-17 21:21] VITALS: BP 137/66; PULSE 80; RESP 16
== END 2022-12-17 21:32 | disposition home or self-care (01) ==
LOC: EC 19:40
DX: L03.115 Cellulitis of right lower limb (principal); E11.9 Type 2 diabetes mellitus without complications; K21.9 Gastro-esophageal reflux disease without esophagitis; E78.5 Hyperlipidemia, unspecified; I10 Essential (primary) hypertension; M19.90 Unspecified osteoarthritis, unspecified site; Z79.1 Long term (current) use of non-steroidal anti-inflammatories (NSAID); Z79.84 Long term (current) use of oral hypoglycemic drugs; Z79.4 Long term (current) use of insulin; Z79.899 Other long term (current) drug therapy; Z88.5 Allergy status to narcotic agent
CPT/HCPCS: 36415; 80053; 85025; 93971; 99284; 96374; 96375; J0696; J1885

== ENCOUNTER → 2022-12-21 | Outpatient (CLI) | payer MEDICARE, BC ==
[2022-12-22 00:23] LABS: ALT 57 U/L (8-44); AST 23 U/L (13-35); African American GFR (CKD) 46.1 (60.0-200.0); BUN/Creat Ratio 31.15 Ratio (12.00-20.00); Calcium 9.7 mg/dL (8.7-10.3); Carbon Dioxide 25.8 mmol/L (20.0-27.5); Chloride 98 mmol/L (96-109); Glucose 162 mg/dL (70-110); Non-African American GFR(CKD) 39.8 (60.0-200.0); Potassium 4.7 mmol/L (3.5-5.5); Sodium 134 mmol/L (135-145)
[2022-12-22 00:50] LABS: Creatine Kinase 126 U/L (26-186)
[2022-12-22 01:25] LABS: Basophils # (A) 0.01 X 10*3/uL (0.00-0.10); Basophils % (A) 0.2 %; Eosinophils # (A) 0.03 X 10*3/uL (0.04-0.35); Eosinophils % (A) 0.5 %; HCT 32.6 % (37.2-46.3); HGB 10.1 g/dL (12.0-15.0); Immature Grans, Automated 0.5 %; MCH 31.3 pg (27.0-32.0); MCV 100.9 fL (80.0-97.0); Mean Platelet Volume 10.5 fL (9.5-12.2); Monocytes # (A) 0.48 X 10*3/uL (0.20-1.00); Monocytes % (A) 8.8 %; NRBC Per 100 WBC 0 /100 WBCS (0.0-0.0); Neutrophils # (A) 4.32 X 10*3/uL (1.80-7.70); Platelet Count 206 X 10*3/uL (140-440); RBC 3.23 X 10*6/uL (4.10-5.20); RDW 14.3 % (11.5-14.5); WBC 5.47 X 10*3/uL (4.50-10.00)
[2022-12-22 01:39] LABS: Erythrocyte Sedimentation Rate 26 mm/Hr (0-30)
[2022-12-22 02:00] LABS: C Reactive Protein <0.30 mg/dL (0.00-0.80); Rheumatoid Factor, Qnt <10 IU/mL (0-15)
[2022-12-22 11:16] LABS: Angiotensin-1 Converting Enz. 8 U/L (8-52)
[2022-12-22 13:24] LABS: HLA B27 NEGATIVE
== END | disposition home or self-care (01) ==
LOC: LABWHC1 14:17
PROVIDERS: ATTEND Internal Medicine Rheumatology
DX: M13.0 Polyarthritis, unspecified (principal)
CPT/HCPCS: 36415; 80048; 82164; 82306; 82550; 83520; 84439; 84443; 84450; 84460; 84550; 85025; 85652; 86038; 86140; 86200; 86431; 86812

== ENCOUNTER 2022-12-31 17:49 | Emergency (ER) | payer MEDICARE, BC ==
[2022-12-31 18:12] VITALS: TEMP 98.5
--- NOTE | 2022-12-31 18:29 | ED ---
General Adult HPI - General Source: patient Mode of arrival: wheelchair Limitations: no limitations <EugenievickyconradAnkit sandoval - Last Filed: 12/31/22 21:20> <PrachimargieMarkel High - Last Filed: 12/31/22 21:48> - General Chief complaint: Back Pain/Injury Stated complaint: back pain Time Seen by Provider: 12/31/22 18:17 - History of Present Illness Initial comments: Patient presents to the ED with her son for evaluation. Son states that the patient has been complaining of having left lumbar back pain radiating to her left buttock/thigh and down her left leg since about 2 AM this morning. Son states that the patient reported to him that her pain began suddenly as she was walking, but son denies any report of trauma or fall. Patient states that her pain has improved since earlier today, but she continues to have waxing and waning pain. Patient states that she was a little nauseated earlier today, but she denies vomiting. Patient denies trauma/injury/fall, fever or chills, headache, focal numbness/weakness/neuro deficit, incontinence, urinary retention, chest pain or pressure, dyspnea, dizziness, abdominal pain, vomiting or diarrhea, dysuria/hematuria/urinary frequency/urinary symptoms, or any other symptoms or complaints. (Ankit Baer) - Related Data Home Medications Medication Instructions Recorded Confirmed Atorvastatin [Lipitor] 20 mg PO HS 02/02/14 12/31/22 Ferrous Sulfate [Feosol] 325 mg PO BID 02/02/14 12/31/22 Omeprazole 40 mg PO DAILY 02/02/14 12/31/22 lisinopriL [Zestril] 5 mg PO DAILY 02/02/14 12/31/22 Magnesium Oxide [Mag-Ox] 250 mg PO DAILY 10/10/17 12/31/22 Carboxymethylcellulose Sodium 1 drop BOTH EYES TID PRN 10/04/22 12/31/22 [Refresh Tears] Cholecalciferol [Vitamin D3 (25 50 mcg PO DAILY 10/04/22 12/31/22 Mcg = 1000 Iu)] Furosemide [Lasix] 40 mg PO DAILY 10/04/22 12/31/22 Glimepiride [Amaryl] 4 mg PO DAILY 10/04/22 12/31/22 Insulin Degludec [Tresiba 15 units SQ DAILY 10/04/22 12/31/22 Flextouch U-100 Pen] Pioglitazone [Actos] 15 mg PO DAILY 10/04/22 12/31/22 metFORMIN HCL ER [Glucophage XR] 500 mg PO DAILY 10/04/22 12/31/22 sitaGLIPtin [Januvia] 100 mg PO DAILY 10/04/22 12/31/22 traMADol HCL 50 mg PO TID 12/17/22 12/31/22 Previous Rx's Medication Instructions Recorded methylPREDNISolone Dose Pack 4 mg PO DIRECTED #21 packet 12/31/22 [Medrol Dose Pack] Allergies Allergy/AdvReac Type Severity Reaction Status Date / Time codeine AdvReac Nausea & Verified 12/31/22 18:34 Vomiting Review of Systems ROS Other: All systems not noted in ROS Statement are negative. <Ankit Baer - Last Filed: 12/31/22 21:20> ROS Other: All systems not noted in ROS Statement are negative. <Markel Mcdonald - Last Filed: 12/31/22 21:48> ROS Statement: Those systems with pertinent positive or pertinent negative responses have been documented in the HPI. Past Medical History Past Medical History: Diabetes Mellitus, GERD/Reflux, GI Bleed, Hyperlipidemia, Hypertension, Osteoarthritis (OA), Pneumonia Additional Past Medical History / Comment(s): Bowel Obstruction, Scoliosis, ANEMIA,CONSTIPATION History of Any Multi-Drug Resistant Organisms: None Reported Past Surgical History: Appendectomy, Bowel Resection, Section, Cholecystectomy, Hysterectomy, Tonsillectomy Additional Past Surgical History / Comment(s): BOWEL RESECTION D/T OBSTRUCTION, EGD/COLONOSCOPY, ANA CATARACATS, Past Anesthesia/Blood Transfusion Reactions: Postoperative Nausea & Vomiting (PONV) Past Psychological History: No Psychological Hx Reported Smoking Status: Never smoker Past Alcohol Use History: None Reported Past Drug Use History: None Reported - Past Family History Father Family Medical History: Diabetes Mellitus Mother Family Medical History: Diabetes Mellitus <Ankit Baer - Last Filed: 12/31/22 21:20> General Exam Limitations: no limitations General appearance: alert, in no apparent distress Head exam: Present: atraumatic, normocephalic Eye exam: Present: normal appearance ENT exam: Present: mucous membranes moist Respiratory exam: Present: normal lung sounds bilaterally. Absent: respiratory distress, wheezes, rales, rhonchi, stridor Cardiovascular Exam: Present: regular rate, normal rhythm, normal heart sounds, other (Normal dorsalis pedis pulses bilaterally) GI/Abdominal exam: Present: soft. Absent: distended, tenderness, guarding Extremities exam: Present: full ROM, other (Patient has full range of motion at bilateral hips without any difficulty or pain; pelvis is stable and nontender). Absent: tenderness, pedal edema, calf tenderness Back exam: Present: normal inspection. Absent: tenderness, CVA tenderness (R), CVA tenderness (L) Neurological exam: Present: alert, oriented X3, other (No evidence of lower extremity neurological deficit or saddle anesthesia on exam). Absent: motor sen alissa deficit Psychiatric exam: Present: normal affect, normal mood Skin exam: Present: warm, dry, intact, normal color <Ankit Baer - Last Filed: 12/31/22 21:20> Course Vital Signs 12/31/22 12/31/22 18:07 21:20 Temperature 98.5 F Pulse Rate 84 77 Respiratory 16 18 Rate Blood Pressure 106/63 137/65 O2 Sat by Pulse 98 99 Oximetry Medical Decision Making <Ankit Baer - Last Filed: 12/31/22 21:20> <Markel Mcdonald - Last Filed: 12/31/22 21:48> - Medical Decision Making Was pt. sent in by a medical professional or institution (DOUG Vasques, COMMUNITY NUTRITION EDUCATOR, urgent care, hospital, or care home...) When possible be specific @ -[No] Did you speak to anyone other than the patient for history (EMS, parent, family, police, friend...)? What history was obtained from this source @ -[No] Did you review nursing and triage notes (agree or disagree)? Why? @ -[I reviewed and agree with nursing and triage notes] Were old charts reviewed (outside hosp., previous admission, EMS record, old EKG, old radiological studies, urgent care reports/EKG's, care home records)? Report findings @ -[No old charts were reviewed] Differential Diagnosis (chest pain, altered mental status, abdominal pain women, abdominal pain men, vaginal bleeding, weakness, fever, dyspnea, syncope, headache, dizziness, GI bleed, back pain, seizure, CVA, palpatations, mental health, musculoskeletal)? @ -[Back pain, muscle strain, sprain, muscle spasm, DDD, DJD, fracture, herniated disc disease, radiculopathy, sciatica, renal stone, UTI, pyelonephritis] EKG interpreted by me (3pts min.). @ -[None done] X-rays interpreted by me (1pt min.). @ -[I have reviewed the patient's left hip x-rays, and I agree with the radiologist's interpretation as above.] CT interpreted by me (1pt min.). @ -[I have reviewed the patient's lumbar spine CT, and I agree with the radiologist's interpretation as above.] U/S interpreted by me (1pt. min.). @ -[None done] What testing was considered but not performed or refused? (CT, X-rays, U/S, labs)? Why? @ -[None] What meds were considered but not given or refused? Why? @ -[None] Did you discuss the management of the patient with other professionals (professionals i.e. , PA, COMMUNITY NUTRITION EDUCATOR, lab, RT, psych nurse, social services analyst, veterinary technology instructor, teacher, patrol community service officer, caser shoe parts)? Give summary @ -[No] Was smoking cessation discussed for >3mins.? @ -[No] Was critical care preformed (if so, how long)? @ -[No] Were there social determinants of health that impacted care today? How? (Homelessness, low income, unemployed, alcoholism, drug addiction, transportation, low edu. Level, literacy, decrease access to med. care, usp, rehab)? @ -[No] Was there de-escalation of care discussed even if they declined (Discuss DNR or withdrawal of care, Hospice)? DNR status @ -[No] What co-morbidities impacted this encounter? (DM, HTN, Smoking, COPD, CAD, Cancer, CVA, ARF, Chemo, Hep., AIDS, mental health diagnosis, sleep apnea, morbid obesity)? @ -[None] Was patient admitted / discharged? Hospital course, mention meds given and route, prescriptions, significant lab abnormalities, going to OR and other pertinent info. @ -[Patient's pain has improved with ED treatment. Patient and son are aware the patient's imaging reports. I have discussed hospital admission with the patient, but patient and son prefer that the patient be discharged home if possible. Patient's UA is still pending at this time. Patient was endorsed to oncoming ED physician (Dr. Mcdonald) due to shift change. Dr. Mcdonald to follow up on the patient's UA results and take over care of the patient at this time.] (Ankit Baer) urinalysis is unremarkable. I did reevaluate the patient she is resting comf ortably. We discussed the possibility of admission. Patient and family declined. Patient stable for discharge with continued outpatient follow-up. Patient does have an appointment with neurology in the near future. (Markel Mcdonald) - Lab Data Lab Results 12/31/22 Range/Units 21:18 Urine Color Light Yellow Urine Appearance Clear (Clear) Urine pH 6.5 (5.0-8.0) Ur Specific [place] 1.010 (1.001-1.035) Urine Protein Negative (Negative) Urine Glucose (UA) Negative (Negative) Urine Ketones Negative (Negative) Urine Blood Negative (Negative) Urine Nitrite Negative (Negative) Urine Bilirubin Negative (Negative) Urine Urobilinogen <2.0 (<2.0) mg/dL Ur Leukocyte Esterase Negative (Negative) - Radiology Data Left hip x-rays: 1. There is slightly poor penetration of the film no obvious displaced fracture. 2. Mild hip osteoarthrosis. Noncontrast CT lumbar spine: 1. No evidence for spinal fracture. 2. Severe multilevel disc degeneration changes with superimposed scoliosis resulting in multilevel severe spinal canal stenosis worse at L3-L4 and L4-L5 with multilevel narrowing as described above. 3. Large stool burden throughout the colon. 4. Cholelithiasis. (Ankit Baer) Disposition <Ankit Baer - Last Filed: 12/31/22 21:20> Is patient prescribed a controlled substance at d/c from ED?: No Time of Disposition: 21:48 <Markel Mcdonald - Last Filed: 12/31/22 21:48> Clinical Impression: Lumbar back pain Disposition: HOME SELF-CARE Condition: Fair Instructions (If sedation given, give patient instructions): Chronic Pain (ED) Prescriptions: methylPREDNISolone Dose Pack [Medrol Dose Pack] 4 mg PO DIRECTED #21 packet Referrals: Jaison Barros MD [Primary Care Provider] - 1-2 days
[2022-12-31] MEDS ORDERED: ONDANSETRON 4 MG/2 ML VIAL IVP STA (18:36)
[2022-12-31] MEDS ORDERED: HYDROmorphone 0.5 MG/0.5 ML SYRINGE IVP STA (18:36)
--- NOTE | 2022-12-31 19:09 | XR ---
EXAMINATION TYPE: XR Hip Complete LT DATE OF EXAM: 12/31/2022 7:02 PM INDICATION: Patient age:Female; 87 years old; Reason for study: left buttock pain; COMPARISON: None. TECHNIQUE: The left hip was examined in the frontal and lateral projections and a AP pelvis. FINDINGS: Poor penetration of the film which limits evaluation slightly, no obvious displaced fractur e visualized. No evidence for acute process, joint dislocation or significant soft tissue swelling. O steophyte formation of the superior acetabulum of the hip left hip. IMPRESSION: 1. There is slightly poor penetration of the film no obvious displaced fracture. 2. Mild hip osteoarthrosis.
--- NOTE | 2022-12-31 19:48 | CT ---
EXAMINATION TYPE: CT lumbar spine wo con CT DLP: 573.2 mGycm, Automated exposure control for dose reduction was used. 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 Soft tissue and bone windows in coronal and sagittal planes were obtained and reviewed. Contrast used: None Oral contrast used: none. FINDINGS: Alignment: There are 5 lumbar type vertebral bodies with levoscoliosis alignment apex L3. Bone: No evidence of fracture is identified. Degeneration changes of the sacroiliac joint with osteo phyte formation are present. Multilevel disc degeneration changes with vacuum disc phenomenon, disc s pace narrowing, and vacuum disc phenomenon is present. Discs: T12-L1: Facet joint arthropathy, osteophytes and disc bulging result in mild spinal canal stenosis an d severe left and [id number] right neural foraminal stenosis. L1-L2: Facet joint arthropathy, osteophytes and disc bulging result in mild to moderate spinal canal stenosis and severe left and mild to moderate right neural foraminal stenosis. L2-L3: Facet joint arthropathy, osteophytes and disc bulging result in moderate to severe spinal kenya l stenosis and severe right and mild left neural foraminal stenosis. L3-L4: Facet joint arthropathy, osteophytes and disc bulging result in moderate to severe spinal kenya l stenosis and severe right and mild left neural foraminal stenosis. L4-L5: Facet joint arthropathy, osteophytes and disc bulging result in severe spinal canal stenosis and moderate severe left bilateral neural foraminal stenosis. L5-S1: Facet joint arthropathy, osteophytes and disc bulging result in no significant spinal canal st enosis and moderate to severe left and moderate right bilateral neural foraminal stenosis. Other: Layering gallstones within the gallbladder lumen. There is moderate to severe atherosclerosis of the arterial vasculature. Large stool burden throughout the colon. Postsurgical changes of the col on with sutures identified. IMPRESSION: 1. No evidence for spinal fracture. 2. Severe multilevel disc degeneration changes with superimposed scoliosis resulting in multilevel se katy spinal canal stenosis worse at L3-L4 and L4-L5 with multilevel narrowing as described above. 3. Large stool burden throughout the colon. 4. Cholelithiasis.
[2022-12-31 21:22] VITALS: BP 137/65; PULSE 77; RESP 18
[2022-12-31 21:39] LABS: Appearance,Urine Clear (Clear); Bilirubin,Urine Negative (Negative); Blood,Urine Negative (Negative); Color,Urine Light Yellow; Glucose,Urine (UA) Negative (Negative); Ketones,Urine Negative (Negative); Leukocyte Esterase,Urine Negative (Negative); Nitrite,Urine Negative (Negative); PH, Urine 6.5 (5.0-8.0); Protein,Urine Negative (Negative); Urobilinogen,Urine <2.0 mg/dL (<2.0)
[2022-12-31] MEDS ORDERED: DEXAMETHASONE SOD PHOSPHATE 4 MG/ML 1 ML VIAL IVP STA (21:45)
== END 2022-12-31 22:32 | disposition home or self-care (01) ==
LOC: EC 17:49
DX: M54.50 Low back pain, unspecified (principal); M48.061 Spinal stenosis, lumbar region without neurogenic claudication; M51.36 Other intervertebral disc degeneration, lumbar region; K80.20 Calculus of gallbladder without cholecystitis without obstruction; E11.9 Type 2 diabetes mellitus without complications; K21.9 Gastro-esophageal reflux disease without esophagitis; E78.5 Hyperlipidemia, unspecified; I10 Essential (primary) hypertension; M19.90 Unspecified osteoarthritis, unspecified site; Z79.84 Long term (current) use of oral hypoglycemic drugs; Z79.4 Long term (current) use of insulin; Z79.1 Long term (current) use of non-steroidal anti-inflammatories (NSAID); Z79.899 Other long term (current) drug therapy; Z88.5 Allergy status to narcotic agent
CPT/HCPCS: 81003; 73502; 72131; 99284; 96374; 96375 ×2; J1100; J2405; J1170

== ENCOUNTER 2023-02-14 13:27 | Emergency (ER) | payer MEDICARE, BC ==
[2023-02-14 14:11] VITALS: BP 90/51; PULSE 70; RESP 17; TEMP 98.2
--- NOTE | 2023-02-14 14:59 | ED ---
General Adult HPI - General Chief complaint: Extremity Problem,Nontraumatic Stated complaint: Urgent care sent - Swelling in right leg Time Seen by Provider: 02/14/23 14:35 Source: patient, RN notes reviewed, old records reviewed Mode of arrival: ambulatory Limitations: no limitations - History of Present Illness Initial comments: This is an 87-year-old female presents emergency Department complaining of redness and swelling to the distal right leg. She went to see her neurologist in the center to the urgent care urgent care center and to the emergency department. Patient denies any fever chills. Patient states the leg is tender to touch. Patient denies any injury. Patient states the leg is always swollen and somewhat red but it does appear little more red than normal. Patient denies any difficulty breathing or chest pain patient denies any shortness of breath per patient denies any abdominal pain. - Related Data Home Medications Medication Instructions Recorded Confirmed Atorvastatin [Lipitor] 20 mg PO DAILY 02/02/14 02/14/23 Ferrous Sulfate [Feosol] 325 mg PO BID 02/02/14 02/14/23 Omeprazole 40 mg PO DAILY 02/02/14 02/14/23 lisinopriL [Zestril] 5 mg PO DAILY 02/02/14 02/14/23 Magnesium Oxide [Mag-Ox] 250 mg PO DAILY 10/10/17 02/14/23 Carboxymethylcellulose Sodium 1 drop BOTH EYES TID PRN 10/04/22 02/14/23 [Refresh Tears] Cholecalciferol [Vitamin D3 (25 50 mcg PO DAILY 10/04/22 02/14/23 Mcg = 1000 Iu)] Furosemide [Lasix] 40 mg PO DAILY 10/04/22 02/14/23 Glimepiride [Amaryl] 4 mg PO DAILY 10/04/22 02/14/23 Insulin Degludec [Tresiba 16 units SQ DAILY 10/04/22 02/14/23 Flextouch U-100 Pen] Pioglitazone [Actos] 15 mg PO DAILY 10/04/22 02/14/23 traMADol HCL 50 mg PO BID 12/17/22 02/14/23 Allergies Allergy/AdvReac Type Severity Reaction Status Date / Time codeine AdvReac Nausea & Verified 02/14/23 16:09 Vomiting Review of Systems ROS Statement: Those systems with pertinent positive or pertinent negative responses have been documented in the HPI. ROS Other: All systems not noted in ROS Statement are negative. Past Medical History Past Medical History: Diabetes Mellitus, GERD/Reflux, GI Bleed, Hyperlipidemia, Hypertension, Osteoarthritis (OA), Pneumonia Additional Past Medical History / Comment(s): Bowel Obstruction, Scoliosis, ANEMIA,CONSTIPATION History of Any Multi-Drug Resistant Organisms: None Reported Past Surgical History: Appendectomy, Bowel Resection, Section, Cholecystectomy, Hysterectomy, Tonsillectomy Additional Past Surgical History / Comment(s): BOWEL RESECTION D/T OBSTRUCTION, EGD/COLONOSCOPY, ANA CATARACATS, Past Anesthesia/Blood Transfusion Reactions: Postoperative Nausea & Vomiting (PONV) Past Psychological History: No Psychological Hx Reported Smoking Status: Never smoker Past Alcohol Use History: None Reported Past Drug Use History: None Reported - Past Family History Father Family Medical History: Diabetes Mellitus Mother Family Medical History: Diabetes Mellitus General Exam - General Exam Comments Initial Comments: GENERAL: Patient is well-developed and well-nourished. Patient is nontoxic and well- hydrated and is in no acute distress. ENT: Neck is soft and supple. No significant lymphadenopathy is noted. Oropharynx is clear. Moist mucous membranes. Neck has full range of motion without eliciting any pain. EYES: The sclera were anicteric and conjunctiva were pink and moist. Extraocular movements were intact and pupils were equal round and reactive to light. Eyelids were unremarkable. PULMONARY: Unlabored respirations. Good breath sounds bilaterally. No audible rales rhonchi or wheezing was noted. CARDIOVASCULAR: There is a regular rate and rhythm without any murmurs gallops or rubs. ABDOMEN: Soft and nontender with normal bowel sounds. SKIN: Skin is clear with no lesions or rashes and otherwise unremarkable. NEUROLOGIC: Patient is alert and oriented x3. Cranial nerves II through XII are grossly intact. Motor and sensory are also intact. Normal speech, volume and content. Symmetrical smile. MUSCULOSKELETAL: Normal extremities with adequate strength and full range of motion. Patient's right leg from about the mid leg down to the ankle is read and tender but the other leg is also tender to palpation though it is not red. Patient has calf tenderness bilaterally. LYMPHATICS: No significant lymphadenopathy is noted PSYCHIATRIC: Normal psychiatric evaluation. Limitations: no limitations Course Vital Signs 02/14/23 14:06 Temperature 98.2 F Pulse Rate 70 Respiratory 17 Rate Blood Pressure 90/51 O2 Sat by Pulse 100 Oximetry Medical Decision Making - Medical Decision Making Was pt. sent in by a medical professional or institution (DOUG Vasques, ELECTRODE CLEANING MACHINE OPERATOR, urgent c are, hospital, or snf...) When possible be specific @ -No Did you speak to anyone other than the patient for history (EMS, parent, family, police, friend...)? What history was obtained from this source @ -Son gave all of the history Did you review nursing and triage notes (agree or disagree)? Why? @ -I reviewed and agree with nursing and triage notes Were old charts reviewed (outside hosp., previous admission, EMS record, old EKG, old radiological studies, urgent care reports/EKG's, snf records)? Report findings @ -I reviewed prior lab work and prior radiological studies on this patient Differential Diagnosis (chest pain, altered mental status, abdominal pain women, abdominal pain men, vaginal bleeding, weakness, fever, dyspnea, syncope, headache, dizziness, GI bleed, back pain, seizure, CVA, palpatations, mental h ealth, musculoskeletal)? @ -Differential Musculoskeletal Muscular strain, contusion, ligament sprain, fracture, arthritis, septic arthritis, bursitis, cellulitis, muscle spasm, nerve compression, DVT, arterial occlusion, herpes zoster, electrolyte abnormality, tumor.... This is not meant to be in all inclusive list EKG interpreted by me (3pts min.). @ -As above X-rays interpreted by me (1pt min.). @ -None done CT interpreted by me (1pt min.). @ -None done U/S interpreted by me (1pt. min.). @ -No DVT was noted What testing was considered but not performed or refused? (CT, X-rays, U/S, labs)? Why? @ -None What meds were considered but not given or refused? Why? @ -None Did you discuss the management of the patient with other professionals (professionals i.e. DOUG Vasques, ELECTRODE CLEANING MACHINE OPERATOR, lab, RT, psych nurse, social science analyst, rough rounder, teacher, officer lieutenant, case resolution specialist)? Give summary @ -No Was smoking cessation discussed for >3mins.? @ -No Was critical care preformed (if so, how long)? @ -No Were there social determinants of health that impacted care today? How? (Homelessness, low income, unemployed, alcoholism, drug addiction, transportation, low edu. Level, literacy, decrease access to med. care, snf, rehab)? @ -No Was there de-escalation of care discussed even if they declined (Discuss DNR or withdrawal of care, Hospice)? DNR status @ -No What co-morbidities impacted this encounter? (DM, HTN, Smoking, COPD, CAD, Cancer, CVA, ARF, Chemo, Hep., AIDS, mental health diagnosis, sleep apnea, morbid obesity)? @ -None Was patient admitted / discharged? Hospital course, mention meds given and route, prescriptions, significant lab abnormalities, going to OR and other pertinent info. @ -Patient's ultrasound showed no DVT. Patient had no white count and the redness seemed more like a chronic cellulitis than an acute cellulitis family was good to go home and continue washing and keep the lady's leg elevated. Undiagnosed new problem with uncertain prognosis? @ -No Drug Therapy requiring intensive monitoring for toxicity (Heparin, Nitro, Insulin, Cardizem)? @ -No Were any procedures done? @ -No Diagnosis/symptom? @ -Leg pain Acute, or Chronic, or Acute on Chronic? @ -Acute Uncomplicated (without systemic symptoms) or Complicated (systemic symptoms)? @ -Uncomplicated Side effects of treatment? @ -No Exacerbation, Progression, or Severe Exacerbation? @ -No Poses a threat to life or bodily function? How? (Chest pain, [place], [place], pneumonia, PE, COPD, DKA, ARF, appy, cholecystitis, CVA, Diverticulitis, Homicidal, Suicidal, threat to staff... and all critical care pts) @ -No - Lab Data Result diagrams: 02/14/23 15:28 02/14/23 15:28 Lab Results 02/14/23 02/14/23 02/14/23 Range/Units 15:28 15:28 15:28 WBC 4.6 (3.8-10.6) k/uL RBC 3.34 L (3.80-5.40) m/uL Hgb 10.6 L (11.4-16.0) gm/dL Hct 33.0 L (34.0-46.0) % MCV 98.6 (80.0-100.0) fL MCH 31.7 (25.0-35.0) pg MCHC 32.2 (31.0-37.0) g/dL RDW 12.6 (11.5-15.5) % Plt Count 191 (150-450) k/uL MPV 8.3 Neutrophils % 74 % Lymphocytes % 14 % Monocytes % 8 % Eosinophils % 1 % Basophils % 0 % Neutrophils # 3.4 (1.3-7.7) k/uL Lymphocytes # 0.7 L (1.0-4.8) k/uL Monocytes # 0.4 (0-1.0) k/uL Eosinophils # 0.0 (0-0.7) k/uL Basophils # 0.0 (0-0.2) k/uL Sodium 132 L (137-145) mmol/L Potassium 4.6 (3.5-5.1) mmol/L Chloride 100 (98-107) mmol/L Carbon Dioxide 30 (22-30) mmol/L Anion Gap 2 mmol/L BUN 23 H (7-17) mg/dL Creatinine 0.65 (0.52-1.04) mg/dL Est GFR (CKD-EPI)AfAm >90 (>60 ml/min/1.73 sqM) Est GFR (CKD-EPI)NonAf 80 (>60 ml/min/1.73 sqM) Glucose 141 H (74-99) mg/dL Plasma Lactic Acid Javier 0.8 (0.7-2.0) mmol/L Calcium 8.5 (8.4-10.2) mg/dL Total Bilirubin 0.3 (0.2-1.3) mg/dL AST 31 (14-36) U/L ALT 36 H (4-34) U/L Alkaline Phosphatase 160 H (38-126) U/L Total Protein 5.5 L (6.3-8.2) g/dL Albumin 3.1 L (3.5-5.0) g/dL Disposition Clinical Impression: Leg pain Disposition: HOME SELF-CARE Condition: Good Additional Instructions: Patient's return to the emergency department is any increase swelling redness fevers or any new symptoms. Is patient prescribed a controlled substance at d/c from ED?: No Referrals: Jaison Barros MD [Primary Care Provider] - 1-2 days Time of Disposition: 18:16
--- NOTE | 2023-02-14 15:24 | US ---
EXAMINATION TYPE: US venous doppler duplex LE RT DATE OF EXAM: 02/14/2023 3:19 PM COMPARISON: 12/17/2022 CLINICAL INDICATION: Female, 87 years old with history of Leg swelling, redness; Right leg swelling a nd redness. Not on blood thinners. SIDE PERFORMED: Right TECHNIQUE: The lower extremity deep venous system is examined utilizing real time linear array sonog aston with graded compression, doppler sonography and color-flow sonography. VESSELS IMAGED: Common Femoral Vein Deep Femoral Vein Greater Saphenous Vein * Femoral Vein Popliteal Vein Small Saphenous Vein * Proximal Calf Veins (* superficial vessels) Right Leg: Negative for DVT Grayscale, color doppler, spectral doppler imaging performed of the deep veins of the lower extremiti es. There is normal flow, compressibility, vascular waveforms. IMPRESSION: 1. No evidence for deep vein thrombosis of the right lower extremity. 2. Subcutaneous edema throughout the right lower extremity
[2023-02-14 16:53] LABS: ALT 36 U/L (4-34); AST 31 U/L (14-36); African American GFR (CKD) >90 (>60 ml/min/1.73 sqM); Albumin 3.1 g/dL (3.5-5.0); Alkaline Phosphatase 160 U/L (38-126); Anion Gap 2 mmol/L; Blood Urea Nitrogen 23 mg/dL (7-17); Calcium 8.5 mg/dL (8.4-10.2); Carbon Dioxide 30 mmol/L (22-30); Chloride 100 mmol/L (98-107); Glucose 141 mg/dL (74-99); Non-African American GFR(CKD) 80 (>60 ml/min/1.73 sqM); Potassium 4.6 mmol/L (3.5-5.1); Sodium 132 mmol/L (137-145); Total Bilirubin 0.3 mg/dL (0.2-1.3); Total Protein 5.5 g/dL (6.3-8.2)
[2023-02-14 16:58] LABS: Basophils % (A) 0 %; Eosinophils % (A) 1 %; HGB 10.6 gm/dL (11.4-16.0); Lymphocytes # (A) 0.7 k/uL (1.0-4.8); Lymphocytes % (A) 14 %; MCH 31.7 pg (25.0-35.0); MCHC 32.2 g/dL (31.0-37.0); MCV 98.6 fL (80.0-100.0); Mean Platelet Volume 8.3; Monocytes # (A) 0.4 k/uL (0-1.0); Monocytes % (A) 8 %; Neutrophils # (A) 3.4 k/uL (1.3-7.7); Neutrophils % (A) 74 %; Platelet Count 191 k/uL (150-450); RBC 3.34 m/uL (3.80-5.40); RDW 12.6 % (11.5-15.5); WBC 4.6 k/uL (3.8-10.6)
== END 2023-02-14 18:55 | disposition home or self-care (01) ==
LOC: EC 13:27
DX: M79.661 Pain in right lower leg (principal); M79.662 Pain in left lower leg; E11.9 Type 2 diabetes mellitus without complications; I10 Essential (primary) hypertension; E78.5 Hyperlipidemia, unspecified; K21.9 Gastro-esophageal reflux disease without esophagitis; M19.90 Unspecified osteoarthritis, unspecified site; Z79.4 Long term (current) use of insulin; Z79.84 Long term (current) use of oral hypoglycemic drugs; Z79.899 Other long term (current) drug therapy; Z88.6 Allergy status to analgesic agent
CPT/HCPCS: 36415; 80053; 83605; 85025; 87040; 99284

== ENCOUNTER 2023-03-06 13:25 | Inpatient (IN) | payer MEDICARE, BC ==
--- NOTE | 2023-03-06 14:17 | ED ---
General Adult HPI - General Stated complaint: Swollen Legs Time Seen by Provider: 03/06/23 14:16 Source: RN notes reviewed - History of Present Illness Initial comments: 87-year-old female presented to the emergency department accompanied by son with a chief complaint of bilateral lower leg edema. She reports worsening while leg swelling for 3 days. Patient denies any injury or trauma. She reports she had right leg swelling 3 weeks ago which was AT HOME. SHE REPORTS THAT SHE TAKES 20 MG OF LASIX TWICE A DAY. SHE HAS BEEN TAKING HER MEDICATIONS PRESCRIBED. SHE REPORTS ACCOMPANYING SHORTNESS OF BREATH ON EXERTION. SHE DENIES ANY KNOWN CARDIAC OR PULMONARY HISTORY. Denies fevers, chills, chest pain, palpitations, abdominal pain, nausea, vomiting. - Related Data Home Medications Medication Instructions Recorded Confirmed Atorvastatin [Lipitor] 20 mg PO DAILY 02/02/14 03/06/23 Ferrous Sulfate [Feosol] 325 mg PO BID 02/02/14 03/06/23 Omeprazole 40 mg PO DAILY 02/02/14 03/06/23 lisinopriL [Zestril] 5 mg PO DAILY 02/02/14 03/06/23 Magnesium Oxide [Mag-Ox] 250 mg PO DAILY 10/10/17 03/06/23 Carboxymethylcellulose Sodium 1 drop BOTH EYES TID PRN 10/04/22 03/06/23 [Refresh Tears] Cholecalciferol [Vitamin D3 (25 50 mcg PO DAILY 10/04/22 03/06/23 Mcg = 1000 Iu)] Furosemide [Lasix] 40 mg PO DAILY 10/04/22 03/06/23 Insulin Degludec [Tresiba 10 units SQ DAILY 10/04/22 03/06/23 Flextouch U-100 Pen] Pioglitazone [Actos] 15 mg PO DAILY 10/04/22 03/06/23 traMADol HCL 50 mg PO BID 12/17/22 03/06/23 Gabapentin [Neurontin] 100 mg PO BID 03/06/23 03/06/23 Humalog Pen (Unknown Dose) See Protocol SQ DIRECTED PRN 03/06/23 03/06/23 Allergies Allergy/AdvReac Type Severity Reaction Status Date / Time codeine AdvReac Nausea & Verified 03/06/23 18:52 Vomiting Review of Systems ROS Statement: Those systems with pertinent positive or pertinent negative responses have been documented in the HPI. ROS Other: All systems not noted in ROS Statement are negative. Past Medical History Past Medical History: Diabetes Mellitus, GERD/Reflux, GI Bleed, Hyperlipidemia, Hypertension, Osteoarthritis (OA), Pneumonia Additional Past Medical History / Comment(s): Bowel Obstruction, Scoliosis, ANEMIA,CONSTIPATION History of Any Multi-Drug Resistant Organisms: None Reported Past Surgical History: Appendectomy, Bowel Resection, Section, Cholecystectomy, Hysterectomy, Tonsillectomy Additional Past Surgical History / Comment(s): BOWEL RESECTION D/T OBSTRUCTION, EGD/COLONOSCOPY, ANA CATARACATS, Past Anesthesia/Blood Transfusion Reactions: Postoperative Nausea & Vomiting ( PONV) Past Psychological History: No Psychological Hx Reported Smoking Status: Never smoker Past Alcohol Use History: None Reported Past Drug Use History: None Reported - Past Family History Father Family Medical History: Diabetes Mellitus Mother Family Medical History: Diabetes Mellitus General Exam - General Exam Comments Initial Comments: Visual Physical Exam Vital signs reviewed General: Well-appearing, nontoxic, no acute distress. Head: Normocephalic, atraumatic Eyes: PERRLA, EOMI ENT: Airway patent Chest: Nonlabored breathing Skin: No visual rash, normal skin tone Neuro: Alert and oriented 3 Musculoskeletal: No gross abnormalities General: Alert, in no acute distress Head: atraumatic normocephalic. Eyes PERRL, EOMI intact, mucous membranes moist Respiratory: Lungs clear to auscultation bilaterally Cardiovascular: Heart rate regular rate and rhythm Abdominal: Soft without guarding or rebound Extremities: Normal inspection with full range of motion and normal capillary refill Neuroogic: alert and oriented 3, CN II-XII intact, able to ambulate with steady gait Skin: warm dry and intact with normal color Course Vital Signs 03/06/23 03/06/23 14:31 17:50 Temperature 98.2 F 97.7 F Pulse Rate 74 80 Respiratory 20 17 Rate Blood Pressure 114/71 137/72 O2 Sat by Pulse 100 100 Oximetry - Reevaluation(s) Reevaluation #1: 03/06/23 18:16 This is discussed with [facility] Dolan who agrees and accepts the patient for admission EKG Findings - EKG Comments: EKG Findings:: I interpreted the following: EKG performed at 16:27. Rate 73 bpm normal sinus rhythm NE interval 132, QRS duration 85, QT/QTc 391/416 Medical Decision Making - Medical Decision Making Was pt. sent in by a medical professional or institution (, DOUG, CONTINUOUS PILLOWCASE CUTTER, urgent care, hospital, or long term...) When possible be specific @ -[No] Did you speak to anyone other than the patient for history (EMS, parent, family, police, friend...)? What history was obtained from this source @ -Son Did you review nursing and triage notes (agree or disagree)? Why? @ -[I reviewed and agree with nursing and triage notes] Were old charts reviewed (outside hosp., previous admission, EMS record, old EKG, old radiological studies, urgent care reports/EKG's, long term records)? Report findings @ -[No old charts were reviewed] Differential Diagnosis (chest pain, altered mental status, abdominal pain women, abdominal pain men, vaginal bleeding, weakness, fever, dyspnea, syncope, headache, dizziness, GI bleed, back pain, seizure, CVA, palpatations, mental health, musculoskeletal)? @ -[not applicable] EKG interpreted by me (3pts min.). @ -[As above] X-rays interpreted by me (1pt min.). @ -[None done] CT interpreted by me (1pt min.). @ -[None done] U/S interpreted by me (1pt. min.). @ -[None done] What testing was considered but not performed or refused? (CT, X-rays, U/S, labs)? Why? @ -[None] What meds were considered but not given or refused? Why? @ -[None] Did you discuss the management of the patient with other professionals ( professionals i.e. DOUG Vasques, CONTINUOUS PILLOWCASE CUTTER, lab, RT, psych nurse, social media analyst, rv detailer, teacher, ict help desk officer, director of casework services)? Give summary @ -[No] Was smoking cessation discussed for >3mins.? @ -[No] Was critical care preformed (if so, how long)? @ -[No] Were there social determinants of health that impacted care today? How? (Homelessness, low income, unemployed, alcoholism, drug addiction, t ransportation, low edu. Level, literacy, decrease access to med. care, longterm, rehab)? @ -[No] Was there de-escalation of care discussed even if they declined (Discuss DNR or withdrawal of care, Hospice)? DNR status @ -[No] What co-morbidities impacted this encounter? (DM, HTN, Smoking, COPD, CAD, Cancer, CVA, ARF, Chemo, Hep., AIDS, mental health diagnosis, sleep apnea, morbid obesity)? @ -[None] Was patient admitted / discharged? Hospital course, mention meds given and route, prescriptions, significant lab abnormalities, going to OR and other pertinent info. @ -Admission. This is an 87-year-old female who presents to the emergency department with a chief complaint of bilateral leg swelling. A thorough history and physical exam performed while in the ED. Heart rate regular rate and rhythm, lungs clear to auscultation however diminished in the lower vela. Abdomen is soft and nontender. Patient is able to ambulate to the restroom without difficulty. Patient had lab work and imaging performed which revealed: WBCs 5.6, hemoglobin 10.9 sodium 133, potassium 4.2 BUNs 22, creatinine 0.7 to initial troponin is negative. BNP 696 Chest x-ray reveals cardiomegaly with pulmonary vascular congestion and trace bilateral effusions. I discussed in detail with the patient and the patient's son who verbalized understanding all questions were addressed. She was given 20 mg of IV Lasix. Patient will be admitted for further evaluation with consult to cardiology. Case discussed with [facility] who agrees and accepts the patient. Case discussed with Dr. Delcid [facility] who agrees with plan of care Undiagnosed new problem with uncertain prognosis? @ -[No] Drug Therapy requiring intensive monitoring for toxicity (Heparin, Nitro, Insulin, Cardizem)? @ -[No] Were any procedures done? @ -[No] Diagnosis/symptom? @ -Bilateral Leg edema - Shortness of Breath Acute, or Chronic, or Acute on Chronic? @ -Acute Uncomplicated (without systemic symptoms) or Complicated (systemic symptoms)? @ - complicated Side effects of treatment? @ -[No] Exacerbation, Progression, or Severe Exacerbation? @ -[No] Poses a threat to life or bodily function? How? (Chest pain, [place], VA, pneumonia, PE, COPD, DKA, ARF, appy, cholecystitis, CVA, Diverticulitis, Homicidal, Suicidal, threat to staff... and all critical care pts) @ -high likelihood - Lab Data Result diagrams: 03/06/23 16:21 03/06/23 16:21 Lab Results 03/06/23 03/06/23 03/06/23 Range/Units 16:21 16:21 16:21 WBC 5.6 (3.8-10.6) k/uL RBC 3.49 L (3.80-5.40) m/uL Hgb 10.9 L (11.4-16.0) gm/dL Hct 34.0 (34.0-46.0) % MCV 97.3 (80.0-100.0) fL MCH 31.1 (25.0-35.0) pg MCHC 32.0 (31.0-37.0) g/dL RDW 12.6 (11.5-15.5) % Plt Count 272 (150-450) k/uL MPV 7.8 Neutrophils % 77 % Lymphocytes % 12 % Monocytes % 8 % Eosinophils % 1 % Basophils % 0 % Neutrophils # 4.3 (1.3-7.7) k/uL Lymphocytes # 0.7 L (1.0-4.8) k/uL Monocytes # 0.4 (0-1.0) k/uL Eosinophils # 0.1 (0-0.7) k/uL Basophils # 0.0 (0-0.2) k/uL Sodium 133 L (137-145) mmol/L Potassium 4.2 (3.5-5.1) mmol/L Chloride 100 (98-107) mmol/L Carbon Dioxide 30 (22-30) mmol/L Anion Gap 3 mmol/L BUN 22 H (7-17) mg/dL Creatinine 0.72 (0.52-1.04) mg/dL Est GFR (CKD-EPI)AfAm 88 (>60 ml/min/1.73 sqM) Est GFR (CKD-EPI)NonAf 76 (>60 ml/min/1.73 sqM) Glucose 125 H (74-99) mg/dL Calcium 8.7 (8.4-10.2) mg/dL Total Bilirubin 0.3 (0.2-1.3) mg/dL AST 30 (14-36) U/L ALT 34 (4-34) U/L Alkaline Phosphatase 191 H (38-126) U/L Troponin I <0.012 (0.000-0.034) ng/mL NT-Pro-B Natriuret Pep pg/mL Total Protein 6.0 L (6.3-8.2) g/dL Albumin 3.3 L (3.5-5.0) g/dL Urine Color Urine Appearance (Clear) Urine pH (5.0-8.0) Ur Specific [place] (1.001-1.035) Urine Protein (Negative) Urine Glucose (UA) (Negative) Urine Ketones (Negative) Urine Blood (Negative) Urine Nitrite (Negative) Urine Bilirubin (Negative) Urine Urobilinogen (<2.0) mg/dL Ur Leukocyte Esterase (Negative) 03/06/23 03/06/23 Range/Units 16:21 17:46 WBC (3.8-10.6) k/uL RBC (3.80-5.40) m/uL Hgb (11.4-16.0) gm/dL Hct (34.0-46.0) % MCV (80.0-100.0) fL MCH (25.0-35.0) pg MCHC (31.0-37.0) g/dL RDW (11.5-15.5) % Plt Count (150-450) k/uL MPV Neutrophils % % Lymphocytes % % Monocytes % % Eosinophils % % Basophils % % Neutrophils # (1.3-7.7) k/uL Lymphocytes # (1.0-4.8) k/uL Monocytes # (0-1.0) k/uL Eosinophils # (0-0.7) k/uL Basophils # (0-0.2) k/uL Sodium (137-145) mmol/L Potassium (3.5-5.1) mmol/L Chloride (98-107) mmol/L Carbon Dioxide (22-30) mmol/L Anion Gap mmol/L BUN (7-17) mg/dL Creatinine (0.52-1.04) mg/dL Est GFR (CKD-EPI)AfAm (>60 ml/min/1.73 sqM) Est GFR (CKD-EPI)NonAf (>60 ml/min/1.73 sqM) Glucose (74-99) mg/dL Calcium (8.4-10.2) mg/dL Total Bilirubin (0.2-1.3) mg/dL AST (14-36) U/L ALT (4-34) U/L Alkaline Phosphatase (38-126) U/L Troponin I (0.000-0.034) ng/mL NT-Pro-B Natriuret Pep 696 pg/mL Total Protein (6.3-8.2) g/dL Albumin (3.5-5.0) g/dL Urine Color Light Yellow Urine Appearance Clear (Clear) Urine pH 6.5 (5.0-8.0) Ur Specific [place] 1.007 (1.001-1.035) Urine Protein Negative (Negative) Urine Glucose (UA) Negative (Negative) Urine Ketones Negative (Negative) Urine Blood Negative (Negative) Urine Nitrite Negative (Negative) Urine Bilirubin Negative (Negative) Urine Urobilinogen <2.0 (<2.0) mg/dL Ur Leukocyte Esterase Negative (Negative) Disposition Clinical Impression: Leg swelling, Shortness of breath Disposition: ADMITTED IP TO THIS [facility] Condition: Fair Time of Disposition: 18:18
--- NOTE | 2023-03-06 15:53 | XR ---
EXAMINATION TYPE: XR chest 2V DATE OF EXAM: 03/06/2023 3:47 PM COMPARISON: Chest radiographs from 12/13/2011 TECHNIQUE: XR chest 2V Frontal and lateral views of the chest. CLINICAL INDICATION:Female, 87 years old with history of BL leg swelling; FINDINGS: Lungs/Pleura: No pneumothorax or focal consolidation. Trace bilateral pleural effusions. Chronic peggy scent parenchymal change. Pulmonary vascularity: Mild pulmonary vascular congestion. Heart/mediastinum: Cardiomediastinal silhouette is enlarged. Atherosclerotic calcifications are seen in the aorta. Musculoskeletal: Multiple level degenerative disc disease changes seen throughout the spine. Dextrocu rvature of the thoracic spine. Left AC joint arthropathy. IMPRESSION: Cardiomegaly with pulmonary vascular congestion and trace bilateral pleural effusions. Correlate for CHF exacerbation.
[2023-03-06 16:38] LABS: Basophils % (A) 0 %; Eosinophils # (A) 0.1 k/uL (0-0.7); Eosinophils % (A) 1 %; HGB 10.9 gm/dL (11.4-16.0); Lymphocytes # (A) 0.7 k/uL (1.0-4.8); Lymphocytes % (A) 12 %; MCH 31.1 pg (25.0-35.0); MCV 97.3 fL (80.0-100.0); Mean Platelet Volume 7.8; Monocytes # (A) 0.4 k/uL (0-1.0); Monocytes % (A) 8 %; Neutrophils # (A) 4.3 k/uL (1.3-7.7); Neutrophils % (A) 77 %; Platelet Count 272 k/uL (150-450); RBC 3.49 m/uL (3.80-5.40); RDW 12.6 % (11.5-15.5); WBC 5.6 k/uL (3.8-10.6)
[2023-03-06 16:49] LABS: ALT 34 U/L (4-34); AST 30 U/L (14-36); African American GFR (CKD) 88 (>60 ml/min/1.73 sqM); Albumin 3.3 g/dL (3.5-5.0); Alkaline Phosphatase 191 U/L (38-126); Anion Gap 3 mmol/L; Blood Urea Nitrogen 22 mg/dL (7-17); Calcium 8.7 mg/dL (8.4-10.2); Carbon Dioxide 30 mmol/L (22-30); Chloride 100 mmol/L (98-107); Glucose 125 mg/dL (74-99); Non-African American GFR(CKD) 76 (>60 ml/min/1.73 sqM); Potassium 4.2 mmol/L (3.5-5.1); Sodium 133 mmol/L (137-145); Total Bilirubin 0.3 mg/dL (0.2-1.3)
[2023-03-06] MEDS ORDERED: FUROSEMIDE 10 MG/ML 2 ML VIAL IV STA (16:56)
[2023-03-06 17:59] LABS: Appearance,Urine Clear (Clear); Bilirubin,Urine Negative (Negative); Blood,Urine Negative (Negative); Color,Urine Light Yellow; Glucose,Urine (UA) Negative (Negative); Ketones,Urine Negative (Negative); Leukocyte Esterase,Urine Negative (Negative); Nitrite,Urine Negative (Negative); PH, Urine 6.5 (5.0-8.0); Protein,Urine Negative (Negative); Specific Gravity,Urine 1.007 (1.001-1.035); Urobilinogen,Urine <2.0 mg/dL (<2.0)
[2023-03-06] MEDS ORDERED: NALOXONE 0.4 MG/ML 1 ML VIAL IV PRN (18:18)
[2023-03-06] MEDS: traMADol 50 MG TAB PO SCH (20:14)
[2023-03-06] MEDS: GABAPENTIN 100 MG CAP PO SCH (20:15)
[2023-03-06] MEDS: FERROUS SULFATE 325 MG TAB PO SCH ×2 (20:15→20:17)
[2023-03-06] MEDS: ACETAMINOPHEN TAB 325 MG TAB PO PRN (21:58)
[2023-03-07 05:29] LABS: Glucose,Whole Blood 96 mg/dL (70-110)
[2023-03-07] MEDS: PANTOPRAZOLE 40 MG TABLET PO SCH (08:23)
[2023-03-07] MEDS: lisinopriL 5 MG TAB PO SCH (08:23)
[2023-03-07] MEDS: ATORVASTATIN 20 MG TAB PO SCH (08:23)
[2023-03-07] MEDS: traMADol 50 MG TAB PO SCH ×2 (08:23→20:17)
[2023-03-07] MEDS: GABAPENTIN 100 MG CAP PO SCH ×2 (08:23→20:16)
[2023-03-07] MEDS: PIOGLITAZONE 15 MG TAB PO SCH (08:23)
[2023-03-07] MEDS: FERROUS SULFATE 325 MG TAB PO SCH ×2 (08:23→20:16)
[2023-03-07] MEDS: MAGNESIUM OXIDE 400 MG TAB PO SCH (08:23)
[2023-03-07] MEDS ORDERED: ARTIFICIAL TEARS-HYPROMELLOSE DROPS 15 ML BTL BOTH EYES PRN (08:25)
[2023-03-07] MEDS: CHOLECALCIFEROL 25 MCG (1000 IU) TABLET PO SCH (08:28)
[2023-03-07] MEDS ORDERED: FUROSEMIDE 10 MG/ML 2 ML VIAL IV STA (08:30)
[2023-03-07] MEDS ORDERED: DEXTROSE 50% SYRINGE 50 ML IVP PRN ×2 (08:34)
--- NOTE | 2023-03-07 08:38 | P.HPIM ---
History of Present Illness H&P Date: 03/07/23 Chief Complaint: Lower extremity edema in with supposed shortness of breath. This is a history of physical and a 87-year-old female with known history of GI bleed in the remote past underlying history diabetes who has had lower extremity edema chronically. She states it was getting worse the last 3 days and they're supposed shortness of breath. She is now admitted for appropriate evaluation for congestive heart failure. She is talking appropriately at this time and states she does feel much better than 3 days prior. No nausea no diaphoresis. Nominal appetite at her baseline. Review of Systems Constitutional: Denies chills, Denies fever Eyes: denies blurred vision, denies pain Ears, nose, mouth and throat: Denies headache, Denies sore throat Cardiovascular: Reports as per HPI, Reports leg edema, Reports shortness of breath, Denies chest pain Respiratory: Denies cough Gastrointestinal: Denies abdominal pain, Denies diarrhea, Denies nausea, Denies vomiting Genitourinary: Denies dysuria, Denies hematuria Past Medical History Past Medical History: Diabetes Mellitus, GERD/Reflux, GI Bleed, Hyperlipidemia, Hypertension, Osteoarthritis (OA), Pneumonia Additional Past Medical History / Comment(s): Bowel Obstruction, Scoliosis, ANEMIA,CONSTIPATION History of Any Multi-Drug Resistant Organisms: None Reported Past Surgical History: Appendectomy, Bowel Resection, Section, Cholecystectomy, Hysterectomy, Tonsillectomy Additional Past Surgical History / Comment(s): BOWEL RESECTION D/T OBSTRUCTION, EGD/COLONOSCOPY, ANA CATARACATS, Past Anesthesia/Blood Transfusion Reactions: Postoperative Nausea & Vomiting (PONV) Past Psychological History: No Psychological Hx Reported Smoking Status: Never smoker Past Alcohol Use History: None Reported Past Drug Use History: None Reported - Past Family History Father Family Medical History: Diabetes Mellitus Mother Family Medical History: Diabetes Mellitus 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 [employer] 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 employment (including self-employed).: No Medications and Allergies Home Medications Medication Instructions Recorded Confirmed Type Atorvastatin [Lipitor] 20 mg PO DAILY 02/02/14 03/06/23 History Ferrous Sulfate [Feosol] 325 mg PO BID 02/02/14 03/06/23 History Omeprazole 40 mg PO DAILY 02/02/14 03/06/23 History lisinopriL [Zestril] 5 mg PO DAILY 02/02/14 03/06/23 History Magnesium Oxide [Mag-Ox] 250 mg PO DAILY 10/10/17 03/06/23 History Carboxymethylcellulose Sodium 1 drop BOTH EYES TID PRN 10/04/22 03/06/23 History [Refresh Tears] Cholecalciferol [Vitamin D3 (25 50 mcg PO DAILY 10/04/22 03/06/23 History Mcg = 1000 Iu)] Furosemide [Lasix] 40 mg PO DAILY 10/04/22 03/06/23 History Insulin Degludec [Tresiba 10 units SQ DAILY 10/04/22 03/06/23 History Flextouch U-100 Pen] Pioglitazone [Actos] 15 mg PO DAILY 10/04/22 03/06/23 History traMADol HCL 50 mg PO BID 12/17/22 03/06/23 History Gabapentin [Neurontin] 100 mg PO BID 03/06/23 03/06/23 History Humalog Pen (Unknown Dose) See Protocol SQ DIRECTED PRN 03/06/23 03/06/23 History Allergies Allergy/AdvReac Type Severity Reaction Status Date / Time codeine AdvReac Nausea & Verified 03/06/23 18:52 Vomiting Physical Exam Vitals: Vital Signs Temp Pulse Pulse Resp BP BP Pulse Ox 03/07/23 02:00 97.9 F 79 18 168/88 99 03/06/23 21:20 98.0 F 82 18 161/77 100 03/06/23 20:53 97.4 F L 85 20 139/61 100 03/06/23 17:50 97.7 F 80 17 137/72 100 03/06/23 14:31 98.2 F 74 20 114/71 100 Intake and Output 03/06/23 03/07/23 03/07/23 22:59 06:59 14:59 Intake Total 10 110 Output Total 800 150 Balance 10 -800 -40 Intake: IV 10 Invasive Line 1 10 Oral 110 Output: Urine 800 150 Other: Voiding Method Toilet Bedside Commode # Voids 1 Weight 46.72 kg 50 kg - Constitutional General appearance: cooperative, no acute distress, thin - EENT Eyes: EOMI - Neck Neck: no lymphadenopathy - Respiratory Respiratory: bilateral: diminished - Cardiovascular Rhythm: regular Heart sounds: normal: S1, S2 Abnormal Heart Sounds: no S3 Gallop - Gastrointestinal General gastrointestinal: soft, no tenderness - Integumentary Integumentary: no cellulitis Results CBC & Chem 7: 03/06/23 16:21 03/06/23 16:21 Labs: Abnormal Lab Results - Last 24 Hours (Table) 03/06/23 03/06/23 Range/Units 16:21 16:21 RBC 3.49 L (3.80-5.40) m/uL Hgb 10.9 L (11.4-16.0) gm/dL Lymphocytes # 0.7 L (1.0-4.8) k/uL Sodium 133 L (137-145) mmol/L BUN 22 H (7-17) mg/dL Glucose 125 H (74-99) mg/dL Alkaline Phosphatase 191 H (38-126) U/L Total Protein 6.0 L (6.3-8.2) g/dL Albumin 3.3 L (3.5-5.0) g/dL Thrombosis Risk Factor Assmnt - DVT/VTE Prophylaxis DVT/VTE Prophylaxis: Low risk, early ambulation encouraged Assessment and Plan (1) Leg swelling Current Visit: Yes Status: Acute Code(s): M79.89 - OTHER SPECIFIED SOFT TISSUE DISORDERS SNOMED Code(s): 049703746 (2) Shortness of breath Current Visit: Yes Status: Acute Code(s): R06.02 - SHORTNESS OF BREATH SNOMED Code(s): 212176064 (3) Diabetes mellitus with peripheral circulatory disorder Current Visit: No Status: Chronic Priority: Low Code(s): 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 Place on sliding scale. Check CBC and CMP in a.m. Lasix 20 mg IV 1. See orders otherwise. Prognosis stable Time with Patient: Greater than 30
[2023-03-07 08:58] LABS: Basophils % (A) 0 %; Eosinophils # (A) 0.1 k/uL (0-0.7); Eosinophils % (A) 2 %; HCT 35.4 % (34.0-46.0); HGB 10.9 gm/dL (11.4-16.0); Hypochromasia Slight; Lymphocytes # (A) 0.5 k/uL (1.0-4.8); Lymphocytes % (A) 10 %; MCH 30.3 pg (25.0-35.0); MCHC 30.7 g/dL (31.0-37.0); MCV 98.7 fL (80.0-100.0); Mean Platelet Volume 8.5; Monocytes # (A) 0.4 k/uL (0-1.0); Monocytes % (A) 7 %; Neutrophils # (A) 4.2 k/uL (1.3-7.7); Neutrophils % (A) 79 %; Platelet Count 257 k/uL (150-450); RBC 3.59 m/uL (3.80-5.40); RDW 13.1 % (11.5-15.5); WBC 5.3 k/uL (3.8-10.6)
[2023-03-07] MEDS ORDERED: FUROSEMIDE 40 MG TAB PO SCH (09:00)
[2023-03-07 09:44] LABS: African American GFR (CKD) >90 (>60 ml/min/1.73 sqM); Anion Gap 5 mmol/L; Blood Urea Nitrogen 19 mg/dL (7-17); Calcium 8.7 mg/dL (8.4-10.2); Carbon Dioxide 29 mmol/L (22-30); Chloride 100 mmol/L (98-107); Glucose 203 mg/dL (74-99); Non-African American GFR(CKD) 82 (>60 ml/min/1.73 sqM); Potassium 4.4 mmol/L (3.5-5.1); Sodium 134 mmol/L (137-145)
--- NOTE | 2023-03-07 10:22 | P.CRDCN ---
History of Present Illness History of present illness: HISTORY OF PRESENT ILLNESS: This is a 87-year-old female with a past medical history significant for congestive heart failure, diabetes, hypertension, and hyperlipidemia. 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 We have been asked to see the patient in consultation for congestive heart failure. Patient examined at the bedside. Patient states she has noticed increased lower extremity edema over the past 3 days. She has more swelling on the left leg versus the right. She also complains of pain in the left leg. She reports a hx of DVT in her leg many years ago. She is not on anticoagulation. Patient reports mild SOB as well over the past few days. She denies any chest pain or pressure. * EKG reveals sinus mechanism with no signs of acute ischemia * Chest xray cardiomegaly with pulmonary vascular congestion and trace bilateral pleural effusions. * Laboratory data: WBC 5.6. Hemoglobin 10.9. Platelet count 272. Sodium 133. Potassium 4.2. BUN 22. Creatinine 0.72. Troponin negative 1. ProBNP 696. * Current home cardiac medications include Lipitor 20 mg daily, Lasix 40 mg daily, lisinopril 5 mg daily REVIEW OF SYSTEMS: At the time of my exam: CONSTITUTIONAL: Denies fever or chills. HEENT: Denies blurred vision, vision changes, or eye pain. Denies hemoptysis CARDIOVASCULAR: Denies chest pain. Denies orthopnea. Denies PND. Denies palpitations RESPIRATORY: Denies shortness of breath. GASTROINTESTINAL: Denies abdominal pain. Denies nausea or vomiting. HEMATOLOGIC: Denies bleeding disorders. GENITOURINARY: Denies any blood in urine. SKIN: Denies pruitis. Denies rash. PHYSICAL EXAM: VITAL SIGNS: Reviewed. GENERAL: Well-developed in no acute distress. HEENT: Head is normocephalic. Pupils are equal, round. Sclerae anicteric. Mucous membranes of the mouth are moist. Neck supple. No JVD or thyromegaly LUNGS: Respirations even and unlabored. Lungs essentially clear to auscultation bilaterally. HEART: Regular rate and rhythm. S1 and S2 heard. ABDOMEN: Soft. Nondistended. Nontender. EXTREMITIES: Normal range of motion. No clubbing or cyanosis. Peripheral pulses intact. 1+ edema, L>R, with pain and redness NEUROLOGIC: Awake and alert. Oriented x 3. ASSESSMENT: Shortness of breath Chronic heart failure, type unknown, echo pending Lower extremity edema, L>R, with pain and redness, r/o DVT, possible cellulitis Hypertension Hyperlipidemia Diabetes PLAN: Obtain 2-D echo to assess cardiac structure and function Obtain doppler of left lower extremity to rule out DVT Begin Keflex for possible LLE cellulitis Patient ordered Lasix x 1 per primary medicine Resume oral lasix starting tomorrow Stable for discharge from a cardiac standpoint Further recommendations pending patient course Nurse practitioner note has been reviewed by physician. Signing provider agrees with the documented findings, assessment, and plan of care. Past Medical History Past Medical History: Diabetes Mellitus, GERD/Reflux, GI Bleed, Hyperlipidemia, Hypertension, Osteoarthritis (OA), Pneumonia Additional Past Medical History / Comment(s): Bowel Obstruction, Scoliosis, ANEMIA,CONSTIPATION History of Any Multi-Drug Resistant Organisms: None Reported Past Surgical History: Appendectomy, Bowel Resection, Section, Cholecystectomy, Hysterectomy, Tonsillectomy Additional Past Surgical History / Comment(s): BOWEL RESECTION D/T OBSTRUCTION, EGD/COLONOSCOPY, ANA CATARACATS, Past Anesthesia/Blood Transfusion Reactions: Postoperative Nausea & Vomiting ( PONV) Past Psychological History: No Psychological Hx Reported Smoking Status: Never smoker Past Alcohol Use History: None Reported Past Drug Use History: None Reported - Past Family History Father Family Medical History: Diabetes Mellitus Mother Family Medical History: Diabetes Mellitus Medications and Allergies Home Medications Medication Instructions Recorded Confirmed Type Atorvastatin [Lipitor] 20 mg PO DAILY 02/02/14 03/06/23 History Ferrous Sulfate [Feosol] 325 mg PO BID 02/02/14 03/06/23 History Omeprazole 40 mg PO DAILY 02/02/14 03/06/23 History lisinopriL [Zestril] 5 mg PO DAILY 02/02/14 03/06/23 History Magnesium Oxide [Mag-Ox] 250 mg PO DAILY 10/10/17 03/06/23 History Carboxymethylcellulose Sodium 1 drop BOTH EYES TID PRN 10/04/22 03/06/23 History [Refresh Tears] Cholecalciferol [Vitamin D3 (25 50 mcg PO DAILY 10/04/22 03/06/23 History Mcg = 1000 Iu)] Furosemide [Lasix] 40 mg PO DAILY 10/04/22 03/06/23 History Insulin Degludec [Tresiba 10 units SQ DAILY 10/04/22 03/06/23 History Flextouch U-100 Pen] Pioglitazone [Actos] 15 mg PO DAILY 10/04/22 03/06/23 History traMADol HCL 50 mg PO BID 12/17/22 03/06/23 History Gabapentin [Neurontin] 100 mg PO BID 03/06/23 03/06/23 History Humalog Pen (Unknown Dose) See Protocol SQ DIRECTED PRN 03/06/23 03/06/23 History Allergies Allergy/AdvReac Type Severity Reaction Status Date / Time codeine AdvReac Nausea & Verified 03/06/23 18:52 Vomiting Physical Exam Vitals: Vital Signs Temp Pulse Pulse Resp BP BP Pulse Ox 03/07/23 02:00 97.9 F 79 18 168/88 99 03/06/23 21:20 98.0 F 82 18 161/77 100 03/06/23 20:53 97.4 F L 85 20 139/61 100 03/06/23 17:50 97.7 F 80 17 137/72 100 03/06/23 14:31 98.2 F 74 20 114/71 100 Intake and Output 03/06/23 03/07/23 03/07/23 22:59 06:59 14:59 Intake Total 10 Output Total 800 150 Balance 10 -800 -150 Intake: IV 10 Invasive Line 1 10 Output: Urine 800 150 Other: Voiding Method Toilet Bedside Commode # Voids 1 Weight 46.72 kg 50 kg Results 03/07/23 08:10 03/07/23 08:10 Cardiac Enzymes 03/06/23 03/06/23 Range/Units 16:21 16:21 AST 30 (14-36) U/L Troponin I <0.012 (0.000-0.034) ng/mL CBC 03/06/23 Range/Units 16:21 WBC 5.6 (3.8-10.6) k/uL RBC 3.49 L (3.80-5.40) m/uL Hgb 10.9 L (11.4-16.0) gm/dL Hct 34.0 (34.0-46.0) % Plt Count 272 (150-450) k/uL Comprehensive Metabolic Panel 03/06/23 Range/Units 16:21 Sodium 133 L (137-145) mmol/L Potassium 4.2 (3.5-5.1) mmol/L Chloride 100 (98-107) mmol/L Carbon Dioxide 30 (22-30) mmol/L BUN 22 H (7-17) mg/dL Creatinine 0.72 (0.52-1.04) mg/dL Glucose 125 H (74-99) mg/dL Calcium 8.7 (8.4-10.2) mg/dL AST 30 (14-36) U/L ALT 34 (4-34) U/L Alkaline Phosphatase 191 H (38-126) U/L Total Protein 6.0 L (6.3-8.2) g/dL Albumin 3.3 L (3.5-5.0) g/dL Current Medications Generic Name Dose Route Start Last Admin Trade Name Freq PRN Reason Stop Dose Admin Acetaminophen 650 mg 03/06/23 18:18 03/06/23 21:58 Acetaminophen Tab 325 Mg Tab PO 650 mg Q6HR PRN Administration Mild Pain or Fever > 100.5 Atorvastatin Calcium 20 mg 03/07/23 09:00 Atorvastatin 20 Mg Tab PO DAILY [facility] Ferrous Sulfate 325 mg 03/06/23 21:00 03/06/23 20:17 Ferrous Sulfate 325 Mg Tab PO Not Given BID TEQUILA Gabapentin 100 mg 03/06/23 21:00 03/06/23 20:15 Gabapentin 100 Mg Cap PO 100 mg BID TEQUILA Administration Lisinopril 5 mg 03/07/23 09:00 Lisinopril 5 Mg Tab PO DAILY [facility] Magnesium Oxide 400 mg 03/07/23 09:00 Magnesium Oxide 400 Mg Tab PO DAILY [facility] Naloxone HCl 0.2 mg 03/06/23 18:18 Naloxone 0.4 Mg/Ml 1 Ml Vial IV Q2M PRN Opioid Reversal Pantoprazole Sodium 40 mg 03/07/23 09:00 Pantoprazole 40 Mg Tablet PO DAILY [facility] Pioglitazone HCl 15 mg 03/07/23 09:00 Pioglitazone 15 Mg Tab PO DAILY [facility] Tramadol HCl 50 mg 03/06/23 21:00 03/06/23 20:14 Tramadol 50 Mg Tab PO 50 mg BID TEQUILA Administration Intake and Output 03/06/23 03/07/23 03/07/23 22:59 06:59 14:59 Intake Total 10 Output Total 800 150 Balance 10 -800 -150 Intake: IV 10 Invasive Line 1 10 Output: Urine 800 150 Other: Voiding Method Toilet Bedside Commode # Voids 1 Weight 46.72 kg 50 kg 03/06/23 16:21 03/06/23 16:21
[2023-03-07 11:20] LABS: Glucose,Whole Blood 419 mg/dL (70-110)
[2023-03-07] MEDS: INSULIN ASPART (NovoLOG) 100 UNIT/ML VIAL SQ SCH ×3 (11:38→20:31)
[2023-03-07] MEDS: ACETAMINOPHEN TAB 325 MG TAB PO PRN ×2 (12:11→20:17)
--- NOTE | 2023-03-07 13:01 | US ---
EXAMINATION TYPE: US venous doppler duplex LE LT DATE OF EXAM: 03/07/2023 9:20 AM COMPARISON: NONE CLINICAL INDICATION: Female, 87 years old with history of unilateral swelling, pain, redness, R/o DVT ; swelling, no h/o dvt SIDE PERFORMED: Left TECHNIQUE: The lower extremity deep venous system is examined utilizing real time linear array sonog aston with graded compression, doppler sonography and color-flow sonography. VESSELS IMAGED: Common Femoral Vein Deep Femoral Vein Greater Saphenous Vein * Femoral Vein Popliteal Vein Small Saphenous Vein * Proximal Calf Veins (* superficial vessels) Left Leg: Negative for DVT IMPRESSION: 1. Left lower extremity ultrasound negative for deep venous thrombosis.
[2023-03-07] MEDS ORDERED: ONDANSETRON 4 MG/2 ML VIAL IVP PRN (13:30)
--- NOTE | 2023-03-07 14:33 | CT ---
EXAMINATION TYPE: CT abdomen pelvis wo con DATE OF EXAM: 03/07/2023 COMPARISON: 11/20/2015 HISTORY: LLQ pain, vomiting CT DLP: 395.6 mGycm Examination of the solid and hollow viscera is limited given the lack of contrast. FINDINGS: LUNG BASES: No evidence for nodule. No evidence for infiltrate. Small right greater than left pleural effusions and mild compressive atelectasis. LIVER/GB: The gallbladder is surgically absent. No space-occupying hepatic lesion. PANCREAS: No pancreatic mass identified. No inflammatory process seen. SPLEEN: No evidence for splenomegaly. No intrasplenic lesions seen. ADRENALS: No adrenal nodules identified. No evidence for thickening. KIDNEYS: No evidence for renal mass. No nephrolithiasis. No hydronephrosis. BOWEL: The appendix is not clearly visualized. No evidence of bowel obstruction. No inflammatory proc ess. There is at least moderate fecal stasis noted. Lymph nodes: No evidence for adenopathy greater than 1 cm. Abdominal aorta: Atheromatous changes seen. No evidence for aneurysm. Genital organs: No significant abnormality. Other: No significant abnormality. IMPRESSION: 1. no acute inflammatory process seen. No abscess or free air. 2. There is at least moderate fecal stasis noted. 3. Bilateral pleural effusions and compressive atelectasis.
[2023-03-07] MEDS: CEPHALEXIN 250 MG CAP PO SCH ×2 (15:42→23:49)
[2023-03-07 16:09] VITALS: RESP 18
[2023-03-07 16:18] LABS: Glucose,Whole Blood 240 mg/dL (70-110)
--- NOTE | 2023-03-07 18:48 | CA ---
Transthoracic Echo Report Name: Tj Whelan Age: 87 Gender: F : 1935 Exam Date: 03/07/2023 09:59 Exam Location: [place] [facility] Ht (in): 59 Wt (lb): 110 Ordering Physician: Nguyen Heller Attending/Referring Phys: [id number], Pina Sugar Sampler Dominga Arndt [facility] Procedure CPT: Indications: LV function, CHF Cardiac Hx: Technical Quality: Fair Contrast 1: Total Dose (mL): Contrast 2: Total Dose (mL): MEASUREMENTS (Male / Female) Normal Values 2D ECHO LV Diastolic Diameter PLAX 4.5 cm 4.2 - 5.9 / 3.9 - 5.3 cm LV Systolic Diameter PLAX 2.8 cm IVS Diastolic Thickness 0.7 cm 0.6 - 1.0 / 0.6 - 0.9 cm LVPW Diastolic Thickness 0.9 cm 0.6 - 1.0 / 0.6 - 0.9 cm LV Relative Wall Thickness 0.4 RV Internal Dim ED PLAX 2.3 cm M-MODE Aortic Root Diameter MM 2.4 cm LA Systolic Diameter MM 3.6 cm LA Ao Ratio MM 1.5 AV Cusp Separation MM 1.2 cm DOPPLER AV Peak Velocity 156.3 cm/s AV Peak Gradient 9.8 mmHg AV Mean Velocity 114.6 cm/s AV Mean Gradient 5.6 mmHg AV Velocity Time Integral 34.1 cm LVOT Peak Velocity 114.8 cm/s LVOT Peak Gradient 5.3 mmHg LVOT Velocity Time Integral 26.2 cm MV Peak Velocity 151.7 cm/s MV Peak Gradient 9.2 mmHg MV Mean Velocity 94.3 cm/s MV Mean Gradient 4.0 mmHg MV Velocity Time Integral 27.7 cm Mitral E Point Velocity 85.8 cm/s Mitral A Point Velocity 128.4 cm/s Mitral E to A Ratio 0.7 MV Deceleration Time 161.4 ms LV E' Lateral Velocity 10.7 cm/s Mitral E to LV E' Lateral Ratio 8.0 LV E' Septal Velocity 8.1 cm/s Mitral E to LV E' Septal Ratio 10.6 TR Peak Velocity 282.4 cm/s TR Peak Gradient 35.7 mmHg Right Atrial Pressure 3.0 mmHg Pulmonary Artery Systolic Pressu 34.9 mmHg Right Ventricular Systolic Press 34.9 mmHg FINDINGS Left Ventricle Normal Left ventricular size, wall thickness, systolic function with no obvious regional wall motion abnormalities. Left ventricular ejection fraction is estimated at 55-60 %. Right Ventricle Normal right ventricular size and function. Right Atrium Normal right atrial size. Left Atrium Normal left atrial size. Mitral Valve Structurally normal mitral valve. Moderate mitral regurgitation.mild mitral annular calcification. Aortic Valve Trileaflet aortic valve. Mild to moderate aortic regurgitation.aortic valve sclerosis. Tricuspid Valve Structurally normal tricuspid valve. Moderate tricuspid regurgitation. Pulmonic Valve Structurally normal pulmonic valve. Trace to mild pulmonic regurgitation. Pericardium No pericardial effusion. Aorta Normal size aortic root and proximal ascending aorta. CONCLUSIONS 1. Normal left ventricular size and function 2. Moderate mitral and tricuspid regurgitation with [id number] aortic regurgitation Previewed by: Dr. Roseann Ly MD (Electronically Signed) Final Date: 07 March 2023 18:47
[2023-03-07 20:20] LABS: Glucose,Whole Blood 369 mg/dL (70-110)
[2023-03-07] MEDS: SODIUM CHLORIDE 0.9% 1,000 ML IV SCH (23:49)
[2023-03-08] MEDS: ACETAMINOPHEN TAB 325 MG TAB PO PRN (03:58)
[2023-03-08 06:06] LABS: Glucose,Whole Blood 222 mg/dL (70-110)
[2023-03-08] MEDS: INSULIN ASPART (NovoLOG) 100 UNIT/ML VIAL SQ SCH ×2 (06:27→12:47)
[2023-03-08 07:30] LABS: HCT 30.1 % (34.0-46.0); HGB 9.6 gm/dL (11.4-16.0); Hypochromasia Slight; MCH 31.9 pg (25.0-35.0); MCHC 31.9 g/dL (31.0-37.0); MCV 99.9 fL (80.0-100.0); Mean Platelet Volume 7.9; Platelet Count 229 k/uL (150-450); RBC 3.01 m/uL (3.80-5.40); RDW 12.9 % (11.5-15.5); WBC 4.7 k/uL (3.8-10.6)
[2023-03-08 08:01] LABS: ALT 26 U/L (4-34); African American GFR (CKD) 72 (>60 ml/min/1.73 sqM); Albumin 2.5 g/dL (3.5-5.0); Anion Gap 2 mmol/L; Blood Urea Nitrogen 25 mg/dL (7-17); Calcium 7.7 mg/dL (8.4-10.2); Carbon Dioxide 28 mmol/L (22-30); Chloride 100 mmol/L (98-107); Glucose 158 mg/dL (74-99); Non-African American GFR(CKD) 63 (>60 ml/min/1.73 sqM); Sodium 130 mmol/L (137-145); Total Bilirubin 0.4 mg/dL (0.2-1.3); Total Protein 4.9 g/dL (6.3-8.2)
[2023-03-08 08:12] LABS: Potassium 4.6 mmol/L (3.5-5.1)
[2023-03-08 08:13] LABS: AST 33 U/L (14-36); Alkaline Phosphatase 122 U/L (38-126)
--- NOTE | 2023-03-08 08:25 | P.DS ---
Providers Date of admission: 03/06/23 18:16 Attending physician: Jaison Barros Consults: 03/06/23 18:18 Consult Physician Routine Consulting Provider: Roseann Ly Consult Reason/Comments: BL leg edema, new onset CHF Do you want consulting provider notified?: Yes Primary care physician: Jaison Barros - Discharge Diagnosis(es) (1) Leg swelling Current Visit: Yes Status: Acute (2) Shortness of breath Current Visit: Yes Status: Acute (3) Diabetes mellitus with peripheral circulatory disorder Current Visit: No Status: Chronic Priority: Low Hospital Course: This is an 87-year-old female was admitted for lower extremity edema and shortness of breath. She has a underlying history of diabetes with lower extremity edema chronically. Edema had worsened in the last 3 days so patient presented to the emergency room for evaluation. She received 1 dose of IV Lasix. Cardiology saw and evaluated patient and feel she is ready for discharge. Testing has been normal. Vitals stable and appetite is at baseline. Patient will be discharged home on her normal home medications. Patient seen and evaluated by nurse practitioner, physician in agreement with plan Patient Condition at Discharge: Fair Plan - Discharge Summary Discharge Rx Participant: No New Discharge Prescriptions: Continue lisinopriL [Zestril] 5 mg PO DAILY Ferrous Sulfate [Feosol] 325 mg PO BID Atorvastatin [Lipitor] 20 mg PO DAILY Omeprazole 40 mg PO DAILY Magnesium Oxide [Mag-Ox] 250 mg PO DAILY Carboxymethylcellulose Sodium [Refresh Tears] 1 drop BOTH EYES TID PRN PRN Reason: Dry Eye(S) Insulin Degludec [Tresiba Flextouch U-100 Pen] 10 units SQ DAILY Pioglitazone [Actos] 15 mg PO DAILY Cholecalciferol [Vitamin D3 (25 Mcg = 1000 Iu)] 50 mcg PO DAILY Furosemide [Lasix] 40 mg PO DAILY traMADol HCL 50 mg PO BID Gabapentin [Neurontin] 100 mg PO BID Humalog Pen (Unknown Dose) See Protocol SQ DIRECTED PRN PRN Reason: Blood Sugar - High Discharge Medication List Atorvastatin [Lipitor] 20 mg PO DAILY 02/02/14 [History] Ferrous Sulfate [Feosol] 325 mg PO BID 02/02/14 [History] Omeprazole 40 mg PO DAILY 02/02/14 [History] lisinopriL [Zestril] 5 mg PO DAILY 02/02/14 [History] Magnesium Oxide [Mag-Ox] 250 mg PO DAILY 10/10/17 [History] Carboxymethylcellulose Sodium [Refresh Tears] 1 drop BOTH EYES TID PRN 10/04/22 [History] Cholecalciferol [Vitamin D3 (25 Mcg = 1000 Iu)] 50 mcg PO DAILY 10/04/22 [History] Furosemide [Lasix] 40 mg PO DAILY 10/04/22 [History] Insulin Degludec [Tresiba Flextouch U-100 Pen] 10 units SQ DAILY 10/04/22 [History] Pioglitazone [Actos] 15 mg PO DAILY 10/04/22 [History] traMADol HCL 50 mg PO BID 12/17/22 [History] Gabapentin [Neurontin] 100 mg PO BID 03/06/23 [History] Humalog Pen (Unknown Dose) See Protocol SQ DIRECTED PRN 03/06/23 [History] Follow up Appointment(s)/Referral(s): Jaison Barros MD [Primary Care Provider] - 1 Week Discharge Disposition: HOME SELF-CARE
[2023-03-08 08:50] VITALS: TEMP 97.1
[2023-03-08] MEDS: MAGNESIUM OXIDE 400 MG TAB PO SCH (08:52)
[2023-03-08] MEDS: ATORVASTATIN 20 MG TAB PO SCH (08:52)
[2023-03-08] MEDS: FERROUS SULFATE 325 MG TAB PO SCH (08:52)
[2023-03-08] MEDS: PIOGLITAZONE 15 MG TAB PO SCH (08:53)
[2023-03-08] MEDS: PANTOPRAZOLE 40 MG TABLET PO SCH (08:53)
[2023-03-08] MEDS: CHOLECALCIFEROL 25 MCG (1000 IU) TABLET PO SCH (08:53)
[2023-03-08] MEDS: traMADol 50 MG TAB PO SCH (08:53)
[2023-03-08] MEDS: GABAPENTIN 100 MG CAP PO SCH (08:53)
[2023-03-08] MEDS: lisinopriL 5 MG TAB PO SCH (08:53)
[2023-03-08] MEDS: CEPHALEXIN 250 MG CAP PO SCH (08:53)
[2023-03-08] MEDS ORDERED: FUROSEMIDE 40 MG TAB PO SCH (09:00)
[2023-03-08] MEDS ORDERED: MAGNESIUM HYDROXIDE 2,400 MG/10 ML CUP PO PRN (09:48)
[2023-03-08] MEDS: SODIUM CHLORIDE 0.9% 1,000 ML IV SCH (10:18)
[2023-03-08 11:51] LABS: Glucose,Whole Blood 386 mg/dL (70-110)
[2023-03-08] MEDS ORDERED: DOCUSATE 100 MG CAP PO STA (11:57)
[2023-03-08] MEDS ORDERED: bisacodyL 10 MG SUPP RECTAL STA (11:57)
[2023-03-08 12:20] VITALS: BP 100/52; PULSE 77
--- NOTE | 2023-03-08 13:02 | P.PN ---
Subjective HISTORY OF PRESENT ILLNESS: This is a 87-year-old female with a past medical history significant for congestive heart failure, diabetes, hypertension, and hyperlipidemia. 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 We have been asked to see the patient in consultation for congestive heart failure. Patient examined at the bedside. Patient states she has noticed increased lower extremity edema over the past 3 days. She has more swelling on the left leg versus the right. She also complains of pain in the left leg. She reports a hx of DVT in her leg many years ago. She is not on anticoagulation. Patient reports mild SOB as well over the past few days. She denies any chest pain or pressure. * EKG reveals sinus mechanism with no signs of acute ischemia * Chest xray cardiomegaly with pulmonary vascular congestion and trace bilateral pleural effusions. * Laboratory data: WBC 5.6. Hemoglobin 10.9. Platelet count 272. Sodium 133. Potassium 4.2. BUN 22. Creatinine 0.72. Troponin negative 1. ProBNP 696. * Current home cardiac medications include Lipitor 20 mg daily, Lasix 40 mg daily, lisinopril 5 mg daily 03/08/2023 Patient examined this morning at the bedside. Patient denies chest pain or pressure. She denies shortness of breath. Left lower extremity Doppler negative for DVT. Vital signs are stable. Echocardiogram completed revealing ejection fraction 55-60% PHYSICAL EXAM: VITAL SIGNS: Reviewed. GENERAL: Well-developed in no acute distress. HEENT: Head is normocephalic. Pupils are equal, round. Sclerae anicteric. Mucous membranes of the mouth are moist. Neck supple. No JVD or thyromegaly LUNGS: Respirations even and unlabored. Lungs essentially clear to auscultation bilaterally. HEART: Regular rate and rhythm. S1 and S2 heard. ABDOMEN: Soft. Nondistended. Nontender. EXTREMITIES: Normal range of motion. No clubbing or cyanosis. Peripheral pu lses intact. 1+ edema, L>R, with pain and redness NEUROLOGIC: Awake and alert. Oriented x 3. ASSESSMENT: Shortness of breath Chronic heart failure with preserved EF Lower extremity edema, L>R, with pain and redness, Doppler negative for DVT, possible cellulitis Hypertension Hyperlipidemia Diabetes PLAN: Continue current cardiac medications Patient is stable for discharge home today from a cardiac standpoint We will sign off. Please reconsult if needed. Nurse practitioner note has been reviewed by physician. Signing provider agrees with the documented findings, assessment, and plan of care. Objective - Vital Signs Vital signs: Vital Signs Temp 97.1 F L 03/08/23 08:46 Pulse 77 03/08/23 12:19 Resp 18 03/08/23 12:19 BP 100/52 03/08/23 12:19 Pulse Ox 100 03/08/23 12:19 FiO2 Intake & Output 03/07/23 03/08/23 03/08/23 18:59 06:59 18:59 Intake Total 440 118 Output Total 2150 Balance -1710 118 Weight 52 kg Intake: Oral 440 118 Output: Urine 2100 Emesis 50 Other: Voiding Method Toilet Toilet Toilet # Voids 1 # Bowel Movements 1 1 - Labs CBC & Chem 7: 03/08/23 07:04 03/08/23 07:04 Labs: Abnormal Lab Results - Last 24 Hours (Table) 03/07/23 03/07/23 03/08/23 Range/Units 16:14 20:14 05:59 RBC (3.80-5.40) m/uL Hgb (11.4-16.0) gm/dL Hct (34.0-46.0) % Sodium (137-145) mmol/L BUN (7-17) mg/dL Glucose (74-99) mg/dL POC Glucose (mg/dL) 240 H 369 H 222 H (70-110) mg/dL Hemoglobin A1c (<=6.0) % Calcium (8.4-10.2) mg/dL Total Protein (6.3-8.2) g/dL Albumin (3.5-5.0) g/dL 03/08/23 03/08/23 03/08/23 Range/Units 07:04 07:04 07:04 RBC 3.01 L (3.80-5.40) m/uL Hgb 9.6 L (11.4-16.0) gm/dL Hct 30.1 L (34.0-46.0) % Sodium 130 L (137-145) mmol/L BUN 25 H (7-17) mg/dL Glucose 158 H (74-99) mg/dL POC Glucose (mg/dL) (70-110) mg/dL Hemoglobin A1c 8.4 H (<=6.0) % Calcium 7.7 L (8.4-10.2) mg/dL Total Protein 4.9 L (6.3-8.2) g/dL Albumin 2.5 L (3.5-5.0) g/dL 03/08/23 Range/Units 11:49 RBC (3.80-5.40) m/uL Hgb (11.4-16.0) gm/dL Hct (34.0-46.0) % Sodium (137-145) mmol/L BUN (7-17) mg/dL Glucose (74-99) mg/dL POC Glucose (mg/dL) 386 H (70-110) mg/dL Hemoglobin A1c (<=6.0) % Calcium (8.4-10.2) mg/dL Total Protein (6.3-8.2) g/dL Albumin (3.5-5.0) g/dL
--- NOTE | 2023-03-08 15:07 | CDI ---
Documentation Clarification Form Date: From: Mckenzie Mohamud Phone: [phone] Admit Date: 03/06/2023 06:16:00 PM Patient Name: Tj Whelan Visit Number: [id number] Discharge Date: ATTENTION: The Clinical Documentation Specialists (CDI) and [facility] Coding Staff appreciate your assistance in clarifying documentation. Please respond to the clarification below the line at the bottom and electronically sign. The CDI & [facility] Coding staff will review the response and follow-up if needed. Please note: Queries are made part of the Legal Health Record. If you have any questions, please contact the author of this message via ITS. Dr. Jaison Barros Cellulitis is documented in Cardiology Note on 03/08. Additional clarification regarding the type of cellulitis is requested. History/risk factors: "87-year-old female with known history of GI bleed in the remote past underlying history diabetes who has had lower extremity edema chronically. She states it was getting worse the last 3 days and they're supposed shortness of breath." - Per Admission H&P on 03/07 Clinical Indicators: "EXTREMITIES: Normal range of motion. No clubbing or cyanosis. Peripheral pulses intact. 1+ edema, L>R, with pain and redness" - Per Cardiology Note on 03/07 Glucose: 03/06 - 125 03/07 - 203 03/08 - 158 POC Glucose: 03/07 - 96, 419, 240, 369 03/08 - 222, 386 Treatment: Per Admission H&P on 03/07 "Place on sliding scale. Lasix 20 mg IV 1." Per Discharge Cardiology Note on 03/07 "Begin Keflex for possible LLE cellulitis Patient ordered Lasix x 1 per primary medicine Resume oral lasix starting tomorrow Stable for discharge from a cardiac standpoint" Please clarify the etiology of the cellulitis, if known: [ ] Cellulitis is a diabetic skin complication [ x ] Cellulitis is not a diabetic skin complication [ ] Other, please specify: [ ] Unable to determine MTDD
== END 2023-03-08 16:17 | disposition home or self-care (01) | DRG 603 ==
LOC: EC 13:25 → 4SSUR 18:16 → 3SCARD 18:55
PROVIDERS: ADMIT Family Medicine; ATTEND Family Medicine
DX: L03.116 Cellulitis of left lower limb (principal); I50.32 Chronic diastolic (congestive) heart failure; I11.0 Hypertensive heart disease with heart failure; E11.51 Type 2 diabetes mellitus with diabetic peripheral angiopathy without gangrene; M79.89 Other specified soft tissue disorders; E78.5 Hyperlipidemia, unspecified; Z79.4 Long term (current) use of insulin; Z79.899 Other long term (current) drug therapy; Z79.84 Long term (current) use of oral hypoglycemic drugs; Z79.891 Long term (current) use of opiate analgesic; Z88.5 Allergy status to narcotic agent; Z87.19 Personal history of other diseases of the digestive system; Z86.718 Personal history of other venous thrombosis and embolism
CPT/HCPCS: 36415; 71046; 74176; 80048; 80053; 81003; 83036; 83880; 84484; 85025; 85027; 93005; 93306; 96374; 99285

== ENCOUNTER 2024-08-14 09:20 | Emergency (ER) | payer MEDICARE, BC ==
[2024-08-14 09:31] VITALS: BP 96/55; PULSE 84; RESP 16; TEMP 97.7
--- NOTE | 2024-08-14 12:16 | ED ---
General Adult HPI - General Chief complaint: Wound/Laceration Stated complaint: Failure to thrive Time Seen by Provider: 08/14/24 09:30 Source: patient, EMS, RN notes reviewed, old records reviewed Mode of arrival: EMS Limitations: language barrier - History of Present Illness Initial comments: I spoke with the patient who was unable to give me any history because of the language barrier. I spoke with the son he stated she was altered and her wounds he felt were getting worse but he did state that she was in no code and stated that she did not want her to be seen here and wanted her to go to [facility] and he told the paramedics that at the scene. Patient will then be transferred to the other facility. - Related Data Home Medications Medication Instructions Recorded Confirmed Atorvastatin [Lipitor] 20 mg PO DAILY 02/02/14 03/06/23 Ferrous Sulfate [Feosol] 325 mg PO BID 02/02/14 03/06/23 Omeprazole 40 mg PO DAILY 02/02/14 03/06/23 lisinopriL [Zestril] 5 mg PO DAILY 02/02/14 03/06/23 Magnesium Oxide [Mag-Ox] 250 mg PO DAILY 10/10/17 03/06/23 Carboxymethylcellulose Sodium 1 drop BOTH EYES TID PRN 10/04/22 03/06/23 [Refresh Tears] Cholecalciferol [Vitamin D3 (25 50 mcg PO DAILY 10/04/22 03/06/23 Mcg = 1000 Iu)] Furosemide [Lasix] 40 mg PO DAILY 10/04/22 03/06/23 Insulin Degludec [Tresiba 10 units SQ DAILY 10/04/22 03/06/23 Flextouch U-100 Pen] Pioglitazone [Actos] 15 mg PO DAILY 10/04/22 03/06/23 traMADol HCL 50 mg PO BID 12/17/22 03/06/23 Gabapentin [Neurontin] 100 mg PO BID 03/06/23 03/06/23 Humalog Pen (Unknown Dose) See Protocol SQ AC-TID PRN 03/06/23 03/08/23 Previous Rx's Medication Instructions Recorded Cephalexin [Keflex] 250 mg PO TID 7 Days #21 cap 03/08/23 Allergies Allergy/AdvReac Type Severity Reaction Status Date / Time cephalexin [From Keflex] Allergy Unknown Verified 08/14/24 09:32 codeine AdvReac Nausea & Verified 03/06/23 18:52 Vomiting Review of Systems ROS Statement: Those systems with pertinent positive or pertinent negative responses have been documented in the HPI. ROS Other: All systems not noted in ROS Statement are negative. Past Medical History Past Medical History: Diabetes Mellitus, GERD/Reflux, GI Bleed, Hyperlipidemia, Hypertension, Osteoarthritis (OA), Pneumonia Additional Past Medical History / Comment(s): Bowel Obstruction, Scoliosis, ANEMIA,CONSTIPATION History of Any Multi-Drug Resistant Organisms: None Reported Past Surgical History: Appendectomy, Bowel Resection, Section, Cholecystectomy, Hysterectomy, Tonsillectomy Additional Past Surgical History / Comment(s): BOWEL RESECTION D/T OBSTRUCTION, EGD/COLONOSCOPY, ANA CATARACATS, Past Anesthesia/Blood Transfusion Reactions: Postoperative Nausea & Vomiting (PONV) Past Psychological History: No Psychological Hx Reported Smoking Status: Never smoker Past Alcohol Use History: None Reported Past Drug Use History: None Reported - Past Family History Father Family Medical History: Diabetes Mellitus Mother Family Medical History: Diabetes Mellitus General Exam - General Exam Comments Initial Comments: GENERAL Patient is well-developed and well-nourished. Patient is in mild distress. EYES Patient's pupils are equal and round. Extraocular motion is intact SKIN Unremarkable NEURO The patient is alert and oriented and is alert but unable to assess orientation because she does not speak [place] MARIANNE Unable to assess MUSCULOSKELETAL Patient was moving all 4 extremities however could not assess strength Limitations: language barrier Course Vital Signs 08/14/24 09:29 Temperature 97.7 F Pulse Rate 84 Respiratory 16 Rate Blood Pressure 96/55 O2 Sat by Pulse 98 Oximetry Medical Decision Making - Medical Decision Making EKG shows sinus tachycardia at 80 bpm DE interval is 136 QRS is 89 QT interval 353 QTc is 389. Patient's EKG shows no ST segment elevation or depression denies Was pt. sent in by a medical professional or institution (, PA, SENIOR COST ESTIMATOR, urgent care, hospital, or halfway...) When possible be specific @ -No Did you speak to anyone other than the patient for history (EMS, parent, family, police, friend...)? What history was obtained from this source @ -No Did you review nursing and triage notes (agree or disagree)? Why? @ -I reviewed and agree with nursing and triage notes Were old charts reviewed (outside hosp., previous admission, EMS record, old EKG, old radiological studies, urgent care reports/EKG's, halfway records)? Report findings @ -No old charts were reviewed Differential Diagnosis? @ -Differential Altered Mental Status: Hypoglycemia, DKA, hypercapnia, ETOH, overdose, CO poisoning, trauma, myxedema coma, HTN encephalopathy, infection, encephalitis, psychosis, intercranial hemorrhage, hepatic encephalopathy, meningitis, CVA, this is not meant to be an all-inclusive list EKG interpreted by me (3pts min.). @ -As above X-rays interpreted by me (1pt min.). @ -None done CT interpreted by me (1pt min.). @ -None done U/S interpreted by me (1pt. min.). @ -None done What testing was considered but not performed or refused? (CT, X-rays, U/S, labs)? Why? @ -None What meds were considered but not given or refused? Why? @ -None Did you discuss the management of the patient with other professionals (professionals i.e. , PA, SENIOR COST ESTIMATOR, lab, RT, psych nurse, high school social science teacher, soup person, teacher, energy control officer, case briefer)? Give summary @ -No Was smoking cessation discussed for >3mins.? @ -No Was critical care preformed (if so, how long)? @ -No Were there social determinants of health that impacted care today? How? (Homelessness, low income, unemployed, alcoholism, drug addiction, transportation, low edu. Level, literacy, decrease access to med. care, fdc, rehab)? @ -No Was there de-escalation of care discussed even if they declined (Discuss DNR or withdrawal of care, Hospice)? DNR status @ -No What co-morbidities impacted this encounter? (DM, HTN, Smoking, COPD, CAD, Cancer, CVA, ARF, Chemo, Hep., AIDS, mental health diagnosis, sleep apnea, morbid obesity)? @ -None Was patient admitted / discharged? Hospital course, mention meds given and route, prescriptions, significant lab abnormalities, going to OR and other pertinent info. @ -Son did not want the patient to be seen here and wanted the patient to be transferred to [facility] EMS was contacted and they took the patient to [facility]. I did order lab work but shortly thereafter the patient was transferred so none of the lab work was back when the patient was transferred. Undiagnosed new problem with uncertain prognosis? @ -No Drug Therapy requiring intensive monitoring for toxicity (Heparin, Nitro, Insulin, Cardizem)? @ -No Were any procedures done? @ -No Diagnosis/symptom? @ -Altered mental state Acute, or Chronic, or Acute on Chronic? @ -Acute on chronic Uncomplicated (without systemic symptoms) or Complicated (systemic symptoms)? @ -Uncomplicated Side effects of treatment? @ -No Exacerbation, Progression, or Severe Exacerbation? @ -No Poses a threat to life or bodily function? How? (Chest pain, [place], [place], pneumonia, PE, COPD, DKA, ARF, appy, cholecystitis, CVA, Diverticulitis, Homicidal, Suicidal, threat to staff... and all critical care pts) @ -No Disposition Clinical Impression: Altered mental status Disposition: HOME SELF-CARE Is patient prescribed a controlled substance at d/c from ED?: No Referrals: Donna Aguilar MD [Primary Care Provider] - 1-2 days Time of Disposition: 12:16
== END 2024-08-14 10:37 | disposition home or self-care (01) ==
LOC: EC 09:20
DX: R41.82 Altered mental status, unspecified (principal); Z88.5 Allergy status to narcotic agent; Z88.1 Allergy status to other antibiotic agents
CPT/HCPCS: 93005; 99283